=== PATIENT | female | born 1960 | race Caucasian/White ===

== ENCOUNTER 2020-04-23 08:26 | Observation (INO) ==
--- NOTE | 2020-04-05 12:24 | Anesthesiology Consultation ---
Date of Service April 05, 2020 Assessment & Plan (1) Encounter for pre-operative examination: Chart Review Chart Review: Acceptable Risk for Surgery and Patient NOT seen in Pre Admission Testing Consults Requested none History Surgery Operation Date: 04/23/20 09:20 Proposed Procedures p Left Partial Knee Replacement Versus - Acosta Bolton DO s Total Knee Arthroplasty - Acosta Bolton DO Height/Weight Height: 5 ft 4 in Weight: 75.296 kg Allergies Allergy/AdvReac Type Severity Reaction Status Date / Time Sulfa (Sulfonamide Allergy Intermediate Rash Verified 04/05/20 10:48 Antibiotics) Medications Home Medications Medication Instructions Recorded Confirmed Last Taken Breast Health 1 dose PO HS 02/21/20 04/05/20 Unknown Virgen Tarte 1 dose PO QAM 02/21/20 04/05/20 Unknown Lactobacillus acidophilus 10,000 mmu cells PO QAM 02/21/20 04/05/20 Unknown [Probiotic] amlodipine 5 mg PO PM 02/21/20 04/05/20 Unknown anastrozole 1 mg PO PM 02/21/20 04/05/20 Unknown ascorbic acid (vitamin C) [Vitamin 500 mg PO PM 02/21/20 04/05/20 Unknown C] aspirin [Aspir-81] 81 mg PO PM 02/21/20 04/05/20 Unknown calcium 500 mg PO HS 02/21/20 04/05/20 Unknown cholecalciferol (vitamin D3) 125 mcg PO PM 02/21/20 04/05/20 Unknown [Vitamin D3] cranberry 450 mg PO PM 02/21/20 04/05/20 Unknown escitalopram oxalate [Lexapro] 10 mg PO QAM 02/21/20 04/05/20 Unknown loratadine 10 mg PO PM 02/21/20 04/05/20 Unknown metoprolol succinate 25 mg PO PM 02/21/20 04/05/20 Unknown multivitamin 1 tab PO QAM 02/21/20 04/05/20 Unknown [id number]-[id number]-epa-fish oil [[place] 3] 1 cap PO PM 02/21/20 04/05/20 Unknown phytosterol-vit D3-fish oil 1 cap PO PM 02/21/20 04/05/20 Unknown [Cholesterol Relief] turmeric 400 mg PO HS 02/21/20 04/05/20 Unknown valsartan-hydrochlorothiazide 1 tab PO QAM 02/21/20 04/05/20 Unknown Wheeled Walker #1 ea 03/05/20 03/05/20 Unknown Past Medical History Medical History Anxiety Breast cancer 3 YRS AGO >RADIATION > LUMPECTOMY History of mitral valve disease MVP with severe MR s/p repair 2001. Mild residual MR per cardiology. Hyperlipidemia Hypertension Osteoarthritis Tricuspid regurgitation Moderate per cardiology. Past Surgical History Surgical History H/O lumpectomy LEFT History of bunionectomy of both great toes History of colonoscopy History of esophagogastroduodenoscopy (EGD) History of tooth extraction Hx of mitral valve repair 2001 [facility] [place] teeth extracted Social History Smoking Status: Never smoker Do You Dip or Chew Tobacco: No Hx Alcohol Use: Yes Alcohol type: beer alcohol intake frequency: a few times a month Hx Substance Use: No substance use type: does not use Testing Laboratory Results Laboratory Tests 03/05/20 03/05/20 03/05/20 11:15 11:15 11:15 WBC 12.41 H Hgb 13.6 Plt Count 260 PT 10.3 INR 1.0 APTT 26.0 Sodium 137 Potassium 4.0 Chloride 102 Carbon Dioxide 31 BUN 14 Creatinine 0.69 Glucose 90 Electrocardiogram Date: 03/05/20 Findings: + NSR @ (76 bpm) Chest X-Ray Date: 03/05/20 Findings: + NAD Echocardiogram Date: 01/31/20 Borderline LVH with normal size and low normal function of the LV. Paradoxical septal motion 2/2 prior open-heart surgery. Normal size and function of the RV. Atrial size is within normal limits. S/p repair of the myxomatous mitral valvular disease with the placement of #34 Meaghan ring with residual mild 1+ residual MR. Mean gradient across the repaired MV is 4 mmHg. Tricuspid valve leaflets are structurally normal. Mod to severe TR on the basis of dilation of tricuspid annulus. The peak PASP of 49 mmHg which is indicative of mild pulm HTN AV is trileaflet and calcified and no evidence of with mean creadient of 3 mmHg. Trace AR. Aortic root is within normal limits. Pulmonic valve appears to be grossly normal, mild pulmonary regurgitation. No intracardiac masses or thrombus. No intracardiac shunts. Pericardium is normal wihtout any significant pericardial effuion. Compared to previous echo from 09/17/18, no significant changes. Stress Test Date: 12/19/19 Submaximal persantine stress test is electrocardiographically negative for myocardial ischemia No cardiac symptoms Other Testing Carotid artery 01/31/20 Nonobstructive plaquing of the right/left common and external carotid Mild narrowing of the right/left internal carotid artery with an estimated obstruction of 1-39% There is antegrade flow in the left and right vertebral arteries
--- NOTE | 2020-04-19 08:11 | History & Physical Report ---
Date of Service April 19, 2020 Assessment & Plan (1) Osteoarthritis of left knee: We will proceed with a left unicompartmental knee arthroplasty. Postoperatively she will be kept overnight in the hospital for postoperative medical management. She plans to use [facility] home health in [place] upon discharge. History of Present Illness Chief Complaint: Osteoarthritis of the left knee. Primary Care Provider: NO PCP Kaela is a pleasant 59-year-old female who has been dealing with increasing left knee pain. Is been bothering her over the last 3 years. She denies any specific injuries. She has tried multiple injections including Euflexxa, steroids, and PRP. X-rays and clinical examination have shown medial compartmental arthritis of the left knee. After failing conservative treatment, she elected proceed with a left unicompartmental knee arthroplasty.. Allergies Allergy/AdvReac Type Severity Reaction Status Date / Time Sulfa (Sulfonamide Allergy Intermediate Rash Verified 04/05/20 10:48 Antibiotics) Home Medications Medication Instructions Recorded Confirmed Type Breast Health 1 dose PO HS 02/21/20 04/05/20 History Virgen Tarte 1 dose PO QAM 02/21/20 04/05/20 History Lactobacillus acidophilus 10,000 mmu cells PO QAM 02/21/20 04/05/20 History [Probiotic] amlodipine 5 mg PO PM 02/21/20 04/05/20 History anastrozole 1 mg PO PM 02/21/20 04/05/20 History ascorbic acid (vitamin C) [Vitamin 500 mg PO PM 02/21/20 04/05/20 History C] aspirin [Aspir-81] 81 mg PO PM 02/21/20 04/05/20 History calcium 500 mg PO HS 02/21/20 04/05/20 History cholecalciferol (vitamin D3) 125 mcg PO PM 02/21/20 04/05/20 History [Vitamin D3] cranberry 450 mg PO PM 02/21/20 04/05/20 History escitalopram oxalate [Lexapro] 10 mg PO QAM 02/21/20 04/05/20 History loratadine 10 mg PO PM 02/21/20 04/05/20 History metoprolol succinate 25 mg PO PM 02/21/20 04/05/20 History multivitamin 1 tab PO QAM 02/21/20 04/05/20 History ygimt-[id number]-epa-fish oil [[place] 3] 1 cap PO PM 12/15/20 01/28/21 History phytosterol-vit D3-fish oil 1 cap PO PM 02/21/20 04/05/20 History [Cholesterol Relief] turmeric 400 mg PO HS 02/21/20 04/05/20 History valsartan-hydrochlorothiazide 1 tab PO QAM 02/21/20 04/05/20 History Wheeled Walker #1 ea 03/05/20 03/05/20 Rx Past Med/Surg History Medical History Anxiety Breast cancer 3 YRS AGO >RADIATION > LUMPECTOMY History of mitral valve disease MVP with severe MR s/p repair 2001. Mild residual MR per cardiology. Hyperlipidemia Hypertension Osteoarthritis Tricuspid regurgitation Moderate per cardiology. Surgical History H/O lumpectomy LEFT History of bunionectomy of both great toes History of colonoscopy History of esophagogastroduodenoscopy (EGD) History of tooth extraction Hx of mitral valve repair 2001 [facility] [place] teeth extracted Social History Smoking Status: Never smoker Second Hand Exposure: No; Do You Dip or Chew Tobacco: No; Tobacco Cessation Education Requested by Patient: No Hx Alcohol Use: Yes Alcohol type: beer Hx Substance Use: No Preferred Language: Vietnamese Communication Ability: Effective Lawn Care Worker Required: No Beliefs That Will Affect Care: None Current Living Situation: Spouse Other Information That Helps Us Care for You: No Feels Safe at Home: Yes Safety Concerns: Feels Safe At This Time Assistive Devices: Denture - Upper and Glasses Assistive Devices Comment: partial to top Review of Systems All systems reviewed & are unremarkable except as noted in HPI & below. Physical Exam On physical examination of the left knee, she has good motion from 0 to 125 degrees. She has mild effusion. She has tenderness palpation of the distal medial femoral condyle and over the medial joint line.. Constitutional WD/WN, vitals as above Eyes PERRL, conjunctivae normal, anicteric sclerae ENMT external ear and nose normal, oropharynx normal Neck trachea midline, no thyromegaly Respiratory normal respiratory effort Cardiovascular RRR, no murmur, no edema Gastrointestinal (Abdomen) normal bowel sounds, soft, nontender, no hepatosplenomegaly Psychiatric A+Ox3, euthymic affect Results & Data Results & Data Laboratory Results . Diagnostic Findings X-rays of the left knee do show medial compartmental arthritis including joint space narrowing and osteophyte formation on the medial side.. PG Care Time/CCT Total # of Minutes Spent Total Time Spent with Patient: Total time spent is greater than 50% in coordination of care (as documented) at patient's floor/unit and/or counseling patient: Coding Level of Care Code None Diagnoses Osteoarthritis of left knee M17.12
--- NOTE | 2020-04-23 06:56 | History & Physical Bridge Note ---
Date of Service April 23, 2020 History & Physical Bridge Note I have examined the patient, reviewed the History & Physical and in the interval since the performance of the History & Physical I have noted the following changes of clinical significance: no changes noted
[~2020-04-23 08:26] MED LIST: ACETAMINOPHEN 500 MG TAB PO SCH; BUPIVACAINE 0.5 % 5 MG/1 ML PF 10ML VIAL ONE; EPINEPHrine INJ 1 MG/ML AMP ONE; FAMOTIDINE 20 MG TAB PO SCH; GABAPENTIN 600 MG DOSE PO SCH; LR 500ML BOLUS IV SCH; ROPIVACAINE 0.5% 5 MG/ML 30 ML VIAL ONE; ROPIVACAINE 0.5% HCL/PF 150 MG, BUPIVACAINE 0.75% MPF 20 ML, EPINEPHrine 30MG/30ML (OR ... INSTIL SCH; TRANEXAMIC ACID 1,000 MG **IV Intra-op IV SCH; TRANEXAMIC ACID 1,000 MG **IV Pre-op IV SCH; ceFAZolin 1000MG 1,000 MG/7.5 ML SYR IV SCH; dexAMETHasone 4 MG TAB PO SCH
[2020-04-23] MEDS: LR 60ML/HR IV SCH ×2 (09:17→09:35)
[2020-04-23] MEDS ORDERED: fentaNYL citrate 100 MCG/2 ML VIAL ONE (09:52)
[2020-04-23] MEDS ORDERED: MIDAZOLAM HCL 1 MG/ML 2ML VIAL ONE (09:52)
[2020-04-23] MEDS ORDERED: ATROPINE SULFATE 0.1 MG/ML 10ML SYR IV PRN (10:25)
[2020-04-23] MEDS ORDERED: fentaNYL citrate 100 MCG/2 ML VIAL IV PRN (10:25)
[2020-04-23] MEDS ORDERED: ePHEDrine sulfate 50 MG/ML AMP IV PRN (10:25)
[2020-04-23] MEDS ORDERED: ONDANSETRON INJ 2 MG/ML 2 ML VIAL IV PRN ×2 (10:25→13:19)
[2020-04-23] MEDS ORDERED: HYDROmorphone INJ 1 MG/ML SYRINGE IV PRN (10:25)
[2020-04-23] MEDS ORDERED: LIDOCAINE HCL 2% 2 ML VIAL/AMP(20MG/ML) INFIL ONE (10:56)
[2020-04-23] MEDS ORDERED: PROPOFOL IV EMULSION 10 MG/ML 20 ML VIAL IV ONE (10:56)
[2020-04-23] MEDS ORDERED: ORTHO JOINT ANESTHETIC ONE (11:05)
--- NOTE | 2020-04-23 12:34 | Operative Report ---
PG Post Operative Report Pre & Post Diagnosis Operation Date: 04/23/20 10:55 Pre-Op Diagnosis: Left Knee Osteoarthritis Post-Op Diagnosis: Left Knee Osteoarthritis I identified the patient and participated in the time-out.: Yes Procedure Operation Date: 04/23/20 10:55 Actual Procedures p Left Partial Knee Replacement(Left) - Acosta Bolton DO Surgeon Acosta Bolton DO Card Services Specialist Acosta Rosario PAC Estimated Blood Loss 10 Findings Consistent with Post-Op Diagnosis Specimens Left femoral and tibial bone Complications none Disposition Disposition: Recovery Room Indications Kaela is a pleasant 59-year-old female who is been dealing with chronic increa sing left knee pain. X-rays and clinical examination were diagnostic for advanced osteoarthritis of the left knee. After failing conservative treatment, she elected proceed with a left total knee arthroplasty. Description of Procedure Implants used: I used a [employer] [place] unicompartmental knee arthroplasty system with a size small femur, a tibia, and a size 8 mobile polyethylene bearing. All components were cemented in place with Palacos G cement. Kaela arrived [facility] for the above procedure. She was see n in the preoperative holding area and the operative extremity was identified and signed. She was given a preoperative antibiotic, TXA, a spinal anesthetic and an adductor nerve block. She was taken back to the operating room and laid on the table in the supine position. She was given basic sedation. The operative knee was then prepped and draped in sterile fashion. A timeout was done, and the patient and the operative extremity was properly identified. A midline incision was made from the superior pole of the patella down to the tibial tubercle. Dissection was taken down to the extensor mechanism and a subvastus arthrotomy was used. The medial retinaculum was released and a small portion of the fat pad was excised. The knee was then placed in a leg espinoza and the intra-articular portion of the knee was exposed. The medial meniscus was removed. The ACL was intact and the lateral compartment was inspected and there were no signs of any chondral damage. Several sizing spoons were used to measure the distal femur and it measured to be a size small.The tibial saw guide was then placed externally over the shaft of the tibia. A 4 mm G clamp was used to clamp the spoon with the external tibial saw guide. 2 pins were placed. A reciprocating saw was then used to resect the tibia just medial to the apex of the medial tibial spine. An oscillating saw was then used to resect the tibial plateau. The tibial bone was then removed. The tibia measured to be a size a. The trochlea was then exposed. A 4 mm drill was sent down the center of the femoral canal followed by a long intramedullary siomara. A line was then marked in the center of the distal medial femoral condyle. A femoral drill guide was then placed and the IM link was used to connect the intramedullary siomara to the femoral drill guide. A 4 mm drill was used in the upper pole of the drill guide and a 6 mm drill was used in the lower pole of the drill guide. The drill guide was then removed. A posterior resection guide was then placed in the posterior femur was resected. A 0 spigot was then impacted in the 6 mm drill hole. The distal femur was then milled and osteophytes were removed. Femoral and tibial t rials were then placed. A size 8 feeler gauge was used to measure the flexion gap in 100 of flexion. A size 6 feeler gauge was used to measure the extension gap in full extension. Trials were then removed and a size 2 spigot was then impacted in the 6 mm hole. The distal femur was once again milled. The anti- impingement guide was then impacted into place and an anterior mill was used to remove anterior bone and create clearance for the front of the bearing. The tibial template was then placed and the keel cut saw was used to resect for the keeled component. Trial components were then placed along with a size 8 mobile- bearing. The knee was brought through a full range of motion and felt to be stable. All trial components were then removed. Surrounding soft tissues were then injected with 50 cc of a pain control cocktail. Drill holes were placed in the distal femur to help with cement integration. The femoral and tibial components were then cemented in place with Palacos G cement. The size 8 mobile-bearing was then snapped into place. The knee was brought through a full range of motion and felt to be stable. The joint was then irrigated with normal saline solution. The tourniquet was deflated and hemostasis was obtained. The extensor mechanism was then closed with #1 Vicryl suture. Skin was closed with 2-0 Vicryl, 3-0V lock suture, and lizzy. A Silverlon and a compressive dressing were placed. She was then transferred to a hospital bed and taken to the postanesthesia care unit in stable condition. She tolerated the procedure well. Acosta Rosario PA-C, was present for the entire procedure. He was critical for patient positioning, prepping, draping, retraction exposure, wound closure and application of sterile dressing. I attest to the content of the Intraoperative Record and any orders documented therein. Any exceptions are noted below.
--- NOTE | 2020-04-23 13:10 | XRay Report ---
XR knee LT 1 or 2V routine CLINICAL HISTORY: Surgical Post Op COMPARISON STUDY: None. FINDINGS: 2 views of the left knee demonstrate a medial unicondylar prosthesis. The hardware appears intact. Skin lizzy are in place. No fracture or dislocation. IMPRESSION: Status post medial unicondylar knee prosthesis. No hardware complication. ACT 112: Negative or not required by law. Electronically signed by: Saurav Nash M.D. 04/23/2020 1:08 PM
[2020-04-23] MEDS ORDERED: SODIUM CHLORIDE 0.9% 1000ML 1,000 ML IV SCH (13:19)
[2020-04-23] MEDS ORDERED: MAGNESIUM HYDROXIDE SUSP 30 ML UDC PO PRN (13:19)
[2020-04-23] MEDS ORDERED: METOCLOPRAMIDE HCL INJ 5 MG/ML 2 ML VIAL IV PRN (13:19)
[2020-04-23] MEDS ORDERED: oxyCODONE HCL IR 5 MG TAB (IMMEDIATE RELEASE) PO PRN (13:19)
[2020-04-23] MEDS ORDERED: HYDROmorphone INJ 0.5 MG/0.5 ML SYR IV PRN (13:19)
[2020-04-23] MEDS ORDERED: NALOXONE HCL 0.4 MG/1 ML VIAL/CARP IV PRN (13:19)
[2020-04-23] MEDS ORDERED: bisacodyL 10 MG SUPP PR PRN (13:19)
--- NOTE | 2020-04-23 13:50 | Anesthesiology Progress Note ---
Date of Service April 23, 2020 Anesthesia Post Procedure Vital Signs Vital Signs: Temp Pulse Pulse Resp BP Pulse Ox 04/23/20 13:20 36.3 C L 81 16 148/81 H 91 04/23/20 13:04 36.4 C L 82 14 134/70 95 04/23/20 12:55 84 14 134/65 95 04/23/20 12:45 36.5 C 89 14 120/67 97 04/23/20 11:15 77 16 122/62 100 04/23/20 11:05 75 16 127/67 100 04/23/20 10:55 76 16 126/65 99 04/23/20 08:56 36.9 C 86 18 156/89 H 98 Pain Intensity Left Knee: Pain Intensity: 4 Transfer of Care Handoff Completed per policy Notes Mental Status: alert / awake / arousable and participated in evaluation Patient Amnestic to Procedure: Yes Nausea / Vomiting: adequately controlled Pain: adequately controlled Airway Patency, RR, SpO2: stable & adequate BP & HR: stable & adequate Hydration State: stable & adequate Neuraxial Anesthesia: was administered and sensory block is resolving Anesthetic Complications: no major complications apparent and Pt Satisfied with anesthetic care
--- NOTE | 2020-04-23 14:17 | Anesthesiology Progress Note ---
Date of Service April 23, 2020 Anesthesia Post Procedure Vital Signs Vital Signs: Temp Pulse Pulse Resp BP Pulse Ox 04/23/20 13:57 36.9 C 81 16 129/78 95 04/23/20 13:20 36.3 C L 81 16 148/81 H 91 04/23/20 13:04 36.4 C L 82 14 134/70 95 04/23/20 12:55 84 14 134/65 95 04/23/20 12:45 36.5 C 89 14 120/67 97 04/23/20 11:15 77 16 122/62 100 04/23/20 11:05 75 16 127/67 100 04/23/20 10:55 76 16 126/65 99 04/23/20 08:56 36.9 C 86 18 156/89 H 98 Pain Intensity Left Knee: Pain Intensity: 4 Transfer of Care Handoff Completed per policy Notes Mental Status: alert / awake / arousable and participated in evaluation Patient Amnestic to Procedure: Yes Nausea / Vomiting: adequately controlled Pain: adequately controlled Airway Patency, RR, SpO2: stable & adequate BP & HR: stable & adequate Hydration State: stable & adequate Neuraxial Anesthesia: was administered and sensory block is resolving Anesthetic Complications: no major complications apparent and Pt Satisfied with anesthetic care
[2020-04-23] MEDS: ACETAMINOPHEN 500 MG TAB PO SCH ×2 (14:26→20:26)
[2020-04-23] MEDS: KETOROLAC 30 MG/ML VIAL IV SCH ×2 (14:26→20:25)
[2020-04-23] MEDS: ceFAZolin 2000MG 2,000 MG/15 ML SYR IV SCH (18:54)
[2020-04-23] MEDS: ASPIRIN 81 MG ECTAB PO SCH (20:25)
[2020-04-23] MEDS: DOCUSATE SODIUM 100 MG CAP PO SCH (20:25)
[2020-04-23] MEDS ORDERED: SENNA 8.6 MG TAB PO SCH (21:00)
[2020-04-23] MEDS ORDERED: ANASTROZOLE 1 MG TAB PO SCH (21:00)
[2020-04-23] MEDS ORDERED: amLODIPine BESYLATE 5 MG TAB PO SCH (21:00)
[2020-04-23] MEDS ORDERED: LORATADINE 10 MG TAB PO SCH (21:00)
[2020-04-23] MEDS ORDERED: METOPROLOL SUCC 25MG EXT REL TAB PO SCH (21:00)
[2020-04-24] MEDS: KETOROLAC 30 MG/ML VIAL IV SCH ×2 (03:06→07:32)
[2020-04-24] MEDS: ceFAZolin 2000MG 2,000 MG/15 ML SYR IV SCH (03:06)
[2020-04-24] MEDS: ACETAMINOPHEN 500 MG TAB PO SCH ×2 (05:39→13:19)
[2020-04-24 05:59] LABS: Hemoglobin 11.8 g/dL (12.0-16.0); Mean Corpuscular Hemoglobin 30.3 pg (25-34); Mean Corpuscular Hgb Conc 34.7 g/dL (32-36); Mean Corpuscular Volume 87.4 fL (80-100); Mean Platelet Volume 10.7 fL (7.4-10.4); Platelet Count 229 K/uL (130-400); RDW Standard Deviation 41.7 fL (36.4-46.3); Red Blood Count 3.89 M/uL (4.2-5.4); White Blood Count 15.45 K/uL (4.8-10.8)
[2020-04-24 06:22] LABS: BUN Creatinine Ratio 23.3 (10-20); Calcium 8.6 mg/dl (8.5-10.1); Creatinine Clr Calc Pharmacy 82.6 ml/min; Est GFR (African American) 103.8; Est GFR (Non-African American) 89.5; Potassium 3.4 mmol/L (3.5-5.1)
--- NOTE | 2020-04-24 06:40 | Orthopedic Progress Note ---
Date of Service April 24, 2020 Assessment & Plan (1) Status post left partial knee replacement: Overall she is doing very well. She is not having too much pain in the left knee. She is on aspirin for DVT prophylaxis. She will be seen by physical therapy this morning for ambulation and range of motion exercises. She can be discharged home later today. She will follow-up with orthopedics in 2 weeks. Mayra Sherwood was seen and examined at bedside this morning. Overall she is doing very well. She is having too much pain in the left knee. She is been up and ambulating to the bathroom. She has no complaints.. Review of Systems All systems reviewed & are unremarkable except as noted in HPI & below. Physical Exam On physical examination of the left knee, the dressing is clean and dry. She has active dorsiflexion plantarflexion of her left ankle. Sensation is intact throughout.. Results & Data Results & Data Laboratory Results H & H 04/24/20 Range/Units 05:33 Hgb 11.8 L (12.0-16.0) g/dL Hct 34.0 L (37-47) % . Diagnostic Findings Postoperative x-rays of the left knee show the prosthesis to be in anatomic alignment without any evidence of fracture, dislocation, or loosening.. PG Care Time/CCT Total # of Minutes Spent Total Time Spent with Patient: Total time spent is greater than 50% in coordination of care (as documented) at patient's floor/unit and/or counseling patient: Coding Level of Care Code 58813 Post Operative Follow-Up Diagnoses Status post left partial knee replacement Z96.652
--- NOTE | 2020-04-24 06:41 | Discharge Summary ---
Date of Service April 24, 2020 Admission HPI (Per Admitting) Kaela is a pleasant 59-year-old female who has been dealing with increasing left knee pain. Is been bothering her over the last 3 years. She denies any specific injuries. She has tried multiple injections including Euflexxa, steroids, and PRP. X-rays and clinical examination have shown medial compartmental arthritis of the left knee. After failing conservative treatment, she elected proceed with a left unicompartmental knee arthroplasty.. Admission Exam (Per Admitting) On physical examination of the left knee, she has good motion from 0 to 125 degrees. She has mild effusion. She has tenderness palpation of the distal medial femoral condyle and over the medial joint line.. Principal Diagnosis Same as "Discharge Diagnosis" noted below under Discharge Instructions. Discharge Exam On physical examination of the left knee, the dressing is clean and dry. She has active dorsiflexion plantarflexion of her left ankle. Sensation is intact throughout.. Discharge Data Consultations 04/23/20 13:19 Consult Case Management - Discharge Planning Routine Procedures Performed Operation Date: 04/23/20 10:55 Actual Procedures p Left Partial Knee Replacement(Left) - Acosta Bolton DO Ordered Studies 04/23/20 15:05 US - OR guided needle placemen Routine Hospital Course (1) Status post left partial knee replacement: On April 23, 2020 Kaela arrived at [facility] and underwent a left partial knee replacement without complication. She had a spinal anesthetic. Postoperatively she was started on aspirin for DVT prophylaxis and transferred to the general orthopedic floors. Her hospital course was uneventful. On postop day #1 her H&H was stable and her pain was well controlled. She was able to participate well with physical therapy doing ambulation and range of motion exercises. She was then discharged home. She will follow-up with orthopedics in 2 weeks. PG Care Time/CCT Total # of Minutes Spent Total Time Spent with Patient: Total time spent is greater than 50% in coordination of care (as documented) at patient's floor/unit and/or counseling patient: Discharge Plan Discharge Items Patient Disposition: Home - Home Health Services Reason For Visit: Left Knee Osteoarthritis Discharge Diagnosis: Left partial knee replacement Activity: Resume your previous activity Non-emergency contact: Surgeon Call non-emergency contact if: your wound has increased redness and your wound has increased drainage Follow-up/Referrals: PCP,NO [Primary Care Provider] - Diet: Regular Addtl Attending Provider Instructions: Activity and Therapy Recommendations: * If you are using [facility] then therapy will be provided at your home until they feel you have accomplished all of your goals. * If you are using [facility] then Physical Therapy will be provided until they feel you are ready to start Outpatient Physical Therapy. * If you are not using home therapy then Outpatient Physical Therapy should start about 3-5 days from your day of surgery. Therapy will last about 6-10 weeks * It is important not to put a pillow under your knee when you are relaxing or sleeping. It is just as important to make sure you are getting your knee perfectly straight as it is to regain your knee bend. * You were shown a series of exercises in the hospital. Do these exercises three times each day including the exercises you were shown in physical therapy. * Get up and walk several times each day. For the first four weeks, try not to stand or walk for more than one hour at a time. If you do stand or walk for more than one hour, you will not hurt anything, but your leg will likely swell. * As you feel comfortable, you may change from the walker or crutches to a cane and then to independent walking. Medications: * Narcotic You will likely be sent home from the hospital with a prescription for the narcotic pain medication that worked best throughout your stay. * Aspirin Most patients will be required to take Aspirin 81mg twice a day for 6 weeks after surgery. This is obtained [id number] and a prescription is not necessary. * Other medications may be prescribed for specific circumstances. If you have any questions, please call the office at . * Resume previous home medications unless otherwise instructed TEDs/Elastic Stockings: The white elastic stockings help limit swelling and prevent blood clots from forming in your legs.~ The more you wear them, the more they work. Wear them for six weeks. Dressing Care: Leave the Silverlon dressing in place for 7 days. After 7 days you may remove the dressing. If the incision is not draining then you may leave the lizzy open to air. If there is a little bit of drainage or if the lizzy are getting stuck on your clothing then cover the incision with a dry dressing. The lizzy will be removed at your 2 week follow-up appointment. Showering: You may shower with the Silverlon dressing in place. Do not let the shower spray hit the dressing directly. Pat the Silverlon dressing dry. If the dressing becomes wet underneath, then simply remove the dressing. Keep the incision dry until you are 7 days out from the day of surgery. After 7 days you may remove the Silverlon dressing and shower with the lizzy exposed. Let soapy water run over the lizzy and pat them dry. Do not scrub or soak the incision. Things To Watch For: * Drainage from the incision site that occurs more than one week after your surgery. * Increased redness at the incision site. * Fever above 102 degrees Fahrenheit. * Unusual chest pain or shortness of breath. * Call [facility] at with any of the above proble ms Follow-Up Visit: Follow-up with Dr. Bolton's PA (Acosta Rosario) 2-3 weeks after your day of surgery. He will remove your lizzy and answer any questions. If you have any additional questions or concerns, Dr Bolton is usually in the office at the same time and will be available An appointment was probably scheduled when you signed-up for surgery in the office. If you have any questions call Office Instructions: More detailed instructions as well as Frequently Asked Questions were provided in a folder by our office when you signed-up for surgery. Please review these instructions when you get home. If you have any further questions or concerns, please feel free to call the office at [phone] Pending Studies at Discharge: No Stand-Alone Forms: My [facility] Medications and DC Order Prescriptions: New oxycodone 5 mg Tablet 5 mg PO Q4H PRN (Reason: pain) Qty: 30 RF: 0 Continued (DME) Wheeled Walker Misc See Rx Instructions .MEDSUPPLY Qty: 1 RF: 0 multivitamin Tablet 1 tab PO QAM RF: 0 anastrozole 1 mg Tablet 1 mg PO PM RF: 0 calcium 500 mg Tablet 500 mg PO HS RF: 0 amlodipine 5 mg Tablet 5 mg PO PM RF: 0 valsartan-hydrochlorothiazide 80-12.5 mg Tablet 1 tab PO QAM RF: 0 ascorbic acid (vitamin C) [Vitamin C] 500 mg Tablet 500 mg PO PM RF: 0 metoprolol succinate 25 mg Tablet Extended Release 24 Hr 25 mg PO PM RF: 0 loratadine 10 mg Tablet 10 mg PO PM RF: 0 escitalopram oxalate [Lexapro] 10 mg Tablet 10 mg PO QAM RF: 0 Cholesterol Relief 650-400 mg-unit Capsule 1 cap PO PM RF: 0 cholecalciferol (vitamin D3) [Vitamin D3] 125 mcg (5,000 unit) Tablet 125 mcg PO PM RF: 0 [place] 3 350-400 mg Capsule 1 cap PO PM RF: 0 cranberry 450 mg Tablet 450 mg PO PM RF: 0 Probiotic 10 billion cell Capsule 10,000 mmu cells PO QAM RF: 0 Breast Health 1 dose PO HS RF: 0 Virgen Tarte 1 dose PO QAM RF: 0 turmeric 400 mg Capsule 400 mg PO HS RF: 0 Changed aspirin 81 mg Tablet,Delayed Release (Dr/Ec) 81 mg PO BID 42 Days Qty: 0 RF: 0 Discharge Orders: Discharge Order (Routine); Ordered 04/24/20 Ordered By: Acosta Bolton Admission Data Admit Date/Time: 04/23/20 12:47 Attending Provider: Acosta Bolton Admit Provider: cAosta Bolton Primary Care Provider: [id number]
--- NOTE | 2020-04-24 07:24 | Anesthesiology Progress Note ---
Date of Service April 24, 2020 Anesthesia Post Procedure Vital Signs Vital Signs: Temp Pulse Pulse Resp BP Pulse Ox 04/24/20 03:04 36.5 C 83 16 151/73 H 93 04/23/20 22:37 36.6 C 86 16 120/69 94 04/23/20 20:00 36.8 C 89 16 124/71 94 04/23/20 16:14 36.8 C 85 17 132/80 97 04/23/20 15:24 36.2 C L 76 17 124/77 97 04/23/20 14:24 36.5 C 83 17 107/59 L 96 04/23/20 13:57 36.9 C 81 16 129/78 95 04/23/20 13:20 36.3 C L 81 16 148/81 H 91 04/23/20 13:04 36.4 C L 82 14 134/70 95 04/23/20 12:55 84 14 134/65 95 04/23/20 12:45 36.5 C 89 14 120/67 97 04/23/20 11:15 77 16 122/62 100 04/23/20 11:05 75 16 127/67 100 04/23/20 10:55 76 16 126/65 99 04/23/20 08:56 36.9 C 86 18 156/89 H 98 Notes Mental Status: alert / awake / arousable and participated in evaluation Patient Amnestic to Procedure: Yes Nausea / Vomiting: adequately controlled Pain: adequately controlled Airway Patency, RR, SpO2: stable & adequate BP & HR: stable & adequate Hydration State: stable & adequate Anesthetic Complications: no major complications apparent
[2020-04-24] MEDS ORDERED: dexAMETHasone 4 MG TAB PO SCH (08:00)
[2020-04-24] MEDS: DOCUSATE SODIUM 100 MG CAP PO SCH (08:17)
[2020-04-24] MEDS: ASPIRIN 81 MG ECTAB PO SCH (08:18)
[2020-04-24] MEDS ORDERED: ESCITALOPRAM OXALATE 10 MG TAB PO SCH (09:00)
[2020-04-24] MEDS ORDERED: MULTIVITAMIN TAB PO SCH (09:00)
[2020-04-24] MEDS ORDERED: VALSARTAN 80 MG TAB PO SCH (09:00)
[2020-04-24] MEDS ORDERED: hydroCHLOROthiazide 25 MG TAB PO SCH (09:00)
== END 2020-04-24 13:30 | disposition home health service (06) ==
LOC: ASU 08:26 → 3E 08:26

== ENCOUNTER 2021-05-17 05:03 | Observation (INO) ==
--- NOTE | 2021-04-18 10:18 | PAT Medication Instructions ---
Medication Instructions Date of Service April 18, 2021 Home Medications Medication Instructions Recorded Francine Becerril #1 ea 03/05/20 Breast Health 1 dose PO HS Virgen Tarte 1 dose PO QPM Lactobacillus acidophilus 10 billion cell capsule (Probiotic) 10,000 mmu cells PO QPM amlodipine 5 mg tablet 5 mg PO QAM anastrozole 1 mg tablet 1 mg PO QPM ascorbic acid (vitamin C) 500 mg tablet (Vitamin C) 500 mg PO PM calcium 500 mg tablet 500 mg PO HS cholecalciferol (vitamin D3) 125 mcg (5,000 unit) tablet (Vitamin D3) 125 mcg PO QPM escitalopram oxalate 10 mg tablet (Lexapro) 10 mg PO QAM loratadine 10 mg tablet 10 mg PO QPM metoprolol succinate 25 mg tablet,extended release 24 hr 25 mg PO QPM multivitamin 1 tab PO QAM [id number] [id number] oil 350 mg- 400 mg capsule 1 cap PO QPM aspirin 81 mg tablet,delayed release 81 mg PO QPM ernestine (Zingiber officinalis) 250 mg capsule 250 mg PO QPM levothyroxine 25 mcg tablet 25 mcg PO QAM] losartan 50 mg-hydrochlorothiazide 12.5 mg tablet 1 tab PO QAM Continue as directed anastrozole 1 mg tablet 1 mg PO QPM (unless surgeon directs otherwise) STOP taking 2 weeks before surgery Breast Health 1 dose PO HS Virgen Tarte 1 dose PO QPM [id number]-other [id number] oil 350 mg- 400 mg capsule 1 cap PO QPM ernestine (Zingiber officinalis) 250 mg capsule 250 mg PO QPM DO NOT take the morning of surgery multivitamin 1 tab PO QAM losartan 50 mg-hydrochlorothiazide 12.5 mg tablet 1 tab PO QAM Take morning of surgery With a small sip of water, OTHERWISE NOTHING TO EAT OR DRINK AFTER MIDNIGHT: amlodipine 5 mg tablet 5 mg PO QAM escitalopram oxalate 10 mg tablet (Lexapro) 10 mg PO QAM levothyroxine 25 mcg tablet 25 mcg PO QAM Take evening before surgery Lactobacillus acidophilus 10 billion cell capsule (Probiotic) 10,000 mmu cells PO QPM ascorbic acid (vitamin C) 500 mg tablet (Vitamin C) 500 mg PO PM calcium 500 mg tablet 500 mg PO HS cholecalciferol (vitamin D3) 125 mcg (5,000 unit) tablet (Vitamin D3) 125 mcg PO QPM loratadine 10 mg tablet 10 mg PO QPM metoprolol succinate 25 mg tablet,extended release 24 hr 25 mg PO QPM aspirin 81 mg tablet,delayed release 81 mg PO QPM (unless surgeon directs otherwise) Other Notes If you have any questions please call us at [phone] or [phone] or [phone] or [phone]
--- NOTE | 2021-04-24 12:44 | Anesthesiology Consultation ---
Date of Service April 24, 2021 Assessment & Plan (1) Encounter for pre-operative examination: Chart Review Chart Review: Acceptable Risk for Surgery (pending most recent cardio note and preop Covid testing results ) and Patient seen in Pre Admission Testing -Will attempt to get most recent cardio note (04/18/21) per patient Pt requests anti-nausea medication prior to surgery- had PONV with TKA under SAB Per PAT appt on 04/24/21, patient denies any recent travel or large group activities. No known Covid positive exposures or Covid related symptoms. No known Covid infection in the past 90 days. Pt is NOT vaccinated. Preop Covid testing scheduled 05/14/21= will await results. Educated on importance of self quarantining, social distancing and wearing mask in public for the patient one week prior to surgery and after Covid testing done Left TKA 04/23/20= Done under SAB at L3-4 with 1 attempt. Teaching & Discussion Pre-Anesthesia Teaching/Discussion Notes: Instructed NPO after midnight before surgery,except medications with 15 cc of water. Medication instructions provided according to the [facility] guidelines. History Surgery Operation Date: 05/17/21 08:25 Proposed Procedures p RIght Total Hip Arthroplasty Anterior - Acosta Bolton, Height/Weight Height: 5 ft 4 in Weight: 74.3 kg Allergies Allergy/AdvReac Type Severity Reaction Status Date / Time Sulfa (Sulfonamide Allergy Unknown Rash Verified 04/16/21 14:47 Antibiotics) Medications Home Medications Medication Instructions Recorded Confirmed Last Taken Breast Health 1 dose PO HS 02/21/20 04/16/21 04/09/20 Virgen Tarte 1 dose PO QPM 02/21/20 04/16/21 04/09/20 Lactobacillus acidophilus 10 10,000 mmu cells PO QPM 02/21/20 04/16/21 04/09/20 billion cell capsule (Probiotic) amlodipine 5 mg tablet 5 mg PO QAM 02/21/20 04/16/21 04/22/20 20:00 anastrozole 1 mg tablet 1 mg PO QPM 02/21/20 04/16/21 04/22/20 20:00 ascorbic acid (vitamin C) 500 mg 500 mg PO PM 02/21/20 04/16/21 04/09/20 tablet (Vitamin C) calcium 500 mg tablet 500 mg PO HS 02/21/20 04/16/21 04/09/20 cholecalciferol (vitamin D3) 125 125 mcg PO QPM 02/21/20 04/16/21 04/09/20 mcg (5,000 unit) tablet (Vitamin D3) escitalopram oxalate 10 mg tablet 10 mg PO QAM 02/21/20 04/16/21 04/23/20 06:45 (Lexapro) loratadine 10 mg tablet 10 mg PO QPM 02/21/20 04/16/21 04/22/20 20:00 metoprolol succinate 25 mg 25 mg PO QPM 02/21/20 04/16/21 04/22/20 20:00 tablet,extended release 24 hr multivitamin 1 tab PO QAM 02/21/20 04/16/21 04/09/20 ploea5-mgg-hxc-other npdse9r-cdmr 1 cap PO QPM 02/21/20 04/16/21 04/09/20 oil 350 mg- 400 mg capsule Wheeled Walker #1 ea 03/05/20 01/28/21 Unknown aspirin 81 mg tablet,delayed 81 mg PO QPM 04/16/21 04/16/21 Unknown release ernestine (Zingiber officinalis) 250 250 mg PO QPM 04/16/21 04/16/21 Unknown mg capsule levothyroxine 25 mcg tablet 25 mcg PO QAM 04/16/21 04/16/21 Unknown losartan 50 mg-hydrochlorothiazide 1 tab PO QAM 04/16/21 04/16/21 Unknown 12.5 mg tablet Past Medical History Medical History (Updated 04/24/21 @ 15:51 by ELIZABETH NavarroC) Anxiety Breast cancer 2018- Left side >RADIATION > LUMPECTOMY Does have left UE restriction Carotid artery disease <50% stenosis to bilateral ICAs per 03/05/21 carotid doppler History of mitral valve disease MVP with severe MR s/p repair 2001. Mild residual MR per 03/05/21 ECHO Hyperlipidemia Hypertension Hypothyroidism Nausea and vomiting after administration of anesthetic agent WITH L PARTIAL KNEE REPLACMENT [facility] 04/2020 - NAUSEATED - PT REQUESTS BE GIVEN SOMETHING ELSE Osteoarthritis Pulmonary hypertension Mild per cardio records PASP 46mmHg per 03/29/21 cardio note Tricuspid regurgitation Moderate to severe TR per 03/05/21 ECHO Cardio aware and monitoring Exercise / Class Metabolic Activity II 4-5 Yardwork/Stairs/Walk up hill (one flight of stairs - no chest pain or SOB ) Past Surgical History Surgical History H/O lumpectomy LEFT History of bunionectomy of both great toes History of colonoscopy History of esophagogastroduodenoscopy (EGD) History of tooth extraction Hx of mitral valve repair 2001 [facility] [place] Status post left partial knee replacement (~04/2020) HX [place] teeth extracted Past Anesthesia History No Hx of Anesthesia Complications (with exception to PONV ) and No Family Hx of Anesthesia Complications History of PONV No Hx of Motion Sickness and History of PONV (significant ) Social History Smoking Status: Never smoker Do You Dip or Chew Tobacco: No Hx Alcohol Use: No Alcohol type: beer alcohol intake frequency: a few times a month Hx Substance Use: No substance use type: does not use Review of Systems Patient denies chest pain, shortness of breath, dyspnea on exertion, reflux, cough, wheezing, palpitations. No hx of seizures, stroke, ID, apnea/snoring. No hx of blood clots or blood tra nsfusions Physical Exam Vital Signs VITALS BP 127/77 P 83 TEMP 98.0 SP02 96% RESP 16 Constitutional no acute distress ENMT Mouth: no TMJ clicking Thyromental Distance: < 3.5 Finger Breadths (3.0) Mallampati Class: III Top front right tooth capped Top partial plate Neck neck extension not limited Respiratory normal respiratory effort; no respiratory distress Auscultation: lungs clear to auscultation bilaterally; no wheezes Cardiovascular Rate/Rhythm: regular rate and regular rhythm Heart Sounds: no murmur Vessels: no carotid bruit Musculoskeletal Spine: no pain with cervical ROM Extremities: extremities normal to inspection Psychiatric Orientation: alert Lab Results Anesthesia Preop Results Results Anesthesia Widget: WBC 7.20 K/uL (4.8-10.8) 04/24/21 Hgb 12.7 g/dL (12.0-16.0) 04/24/21 Hct 37.7 % (37-47) 04/24/21 Plt 259 K/uL (130-400) 04/24/21 Na 139 mmol/L (136-145) 04/24/21 K 3.6 mmol/L (3.5-5.1) 04/24/21 Cl 102 mmol/L (98-107) 04/24/21 CO2 29 mmol/L (21-32) 04/24/21 BUN 13 mg/dl (6-23) 04/24/21 Creat 0.67 mg/dl (0.6-1.2) 04/24/21 Glucose Level 77 mg/dl (70-99(Fasting)) 04/24/21 PT 10.3 Seconds (9.0-12.0) 04/24/21 PTT 26.9 Seconds (21.0-31.0) 04/24/21 INR 1.0 (0.9-1.1) 04/24/21 Blood Type AB Positive 04/24/21 Antibody Screen NEGATIVE 04/24/21 Testing Electrocardiogram Date: 04/24/21 Findings: + NSR @ (82bpm) Normal EKG per cardio. Chest X-Ray Date: 04/24/21 Findings: + NAD and + cardiomegaly Echocardiogram Date: 03/05/21 EF: 53% LV Function: normal Paradoxical septal motion due to prior thoracotomy. Mildly dilated left atrium Repaired mitral valve with placement of a #34 Meaghan ring with residual mild 1+ mitral regurgitation. Moderate to severe TR on the basis of dilation of tricuspid annulus. Peak PASP 48 mmHg which is Indicative of mild to moderate pulmonary hypertension. Mild SD. Status post oversew of the left atrial appendage during the open heart surgery for mitral valve. Compared to previous echo from 01/31/2020, no significant changes. Stress Test Date: 12/19/19 Type: nuclear Normal myocardial perfusion scan. Quality study is good due to the absence of significant artifact. When compared with prior stress test performed September 10, 2017 there has been no new significant progressive change. No diagnostic evidence of reversible myocardial ischemia. Submaximal Persantine stress test is electrographically negative for myocardial ischemia. No cardiac symptoms. Other Testing Carotid artery evaluation 03/05/2021 = nonobstructive plaquing of the right common and external carotid. Mild narrowing of the right ICA with an estimated obstruction of less than 50%. Nonobstructive plaquing of the left common and external carotid. Mild narrowing of the left ICA with an estimated obstruction of less than 50%. Antegrade flow in both vertebral arteries. Compared to carotid ultrasound done 01/31/2020, overall little progressive change. 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
--- NOTE | 2021-05-16 11:45 | History & Physical Report ---
Date of Service May 16, 2021 Assessment & Plan (1) Osteoarthritis of right hip: We will proceed with a right anterior total hip arthroplasty. Postoperatively she will be started on aspirin for DVT prophylaxis and kept overnight in the hospital for postoperative medical management. She plans to use [facility] home health upon discharge. History of Present Illness Chief Complaint: Osteoarthritis of the right hip. Primary Care Provider: NO PCP Kaela is a pleasant 60-year-old female who is been doing with chronic worsening right hip and groin pain. X-rays and clinical examination have been diagnostic for advanced osteoarthritis of the right hip. After failing conservative treatment, she has elected to proceed with a right total hip arthroplasty.. Allergies Allergy/AdvReac Type Severity Reaction Status Date / Time Sulfa (Sulfonamide Allergy Unknown Rash Verified 04/16/21 14:47 Antibiotics) Home Medications Medication Instructions Recorded Confirmed Type Breast Health 1 dose PO HS 02/21/20 04/16/21 History Virgen Tarte 1 dose PO QPM 02/21/20 04/16/21 History Lactobacillus acidophilus 10 10,000 mmu cells PO QPM 02/21/20 04/16/21 History billion cell capsule (Probiotic) amlodipine 5 mg tablet 5 mg PO QAM 02/21/20 04/16/21 History anastrozole 1 mg tablet 1 mg PO QPM 02/21/20 04/16/21 History ascorbic acid (vitamin C) 500 mg 500 mg PO PM 02/21/20 04/16/21 History tablet (Vitamin C) calcium 500 mg tablet 500 mg PO HS 02/21/20 04/16/21 History cholecalciferol (vitamin D3) 125 125 mcg PO QPM 02/21/20 04/16/21 History mcg (5,000 unit) tablet (Vitamin D3) escitalopram oxalate 10 mg tablet 10 mg PO QAM 02/21/20 04/16/21 History (Lexapro) loratadine 10 mg tablet 10 mg PO QPM 02/21/20 04/16/21 History metoprolol succinate 25 mg 25 mg PO QPM 02/21/20 04/16/21 History tablet,extended release 24 hr multivitamin 1 tab PO QAM 02/21/20 04/16/21 History -vso-clo-other spbkh7d-ctmk 1 cap PO QPM 02/21/20 04/16/21 History oil 350 mg- 400 mg capsule Wheeled Walker #1 ea 03/05/20 01/28/21 Rx aspirin 81 mg tablet,delayed 81 mg PO QPM 04/16/21 04/16/21 History release ernestine (Zingiber officinalis) 250 250 mg PO QPM 04/16/21 04/16/21 History mg capsule levothyroxine 25 mcg tablet 25 mcg PO QAM 04/16/21 04/16/21 History losartan 50 mg-hydrochlorothiazide 1 tab PO QAM 04/16/21 04/16/21 History 12.5 mg tablet Past Med/Surg History Medical History Anxiety Breast cancer 2018- Left side >RADIATION > LUMPECTOMY Does have left UE restriction Carotid artery disease <50% stenosis to bilateral ICAs per 03/05/21 carotid doppler History of mitral valve disease MVP with severe MR s/p repair 2001. Mild residual MR per 03/05/21 ECHO Hyperlipidemia Hypertension Hypothyroidism Nausea and vomiting after administration of anesthetic agent WITH L PARTIAL KNEE REPLACMENT [facility] 04/2020 - NAUSEATED - PT REQUESTS BE GIVEN SOMETHING ELSE Osteoarthritis Pulmonary hypertension Mild per cardio records PASP 46mmHg per 03/29/21 cardio note Tricuspid regurgitation Moderate to severe TR per 03/05/21 ECHO Cardio aware and monitoring Surgical History H/O lumpectomy LEFT History of bunionectomy of both great toes History of colonoscopy History of esophagogastroduodenoscopy (EGD) History of tooth extraction Hx of mitral valve repair 2001 [facility] [place] Status post left partial knee replacement (~04/2020) HX [place] teeth extracted Social History Smoking Status: Never smoker Second Hand Exposure: No; Hx Alcohol Use: No Hx Substance Use: No Preferred Language: Hebrew Communication Ability: Effective Water Purifier Operator Required: No Beliefs That Will Affect Care: Voodoo Voodoo Beliefs: ORIENTAL ORTHODOX marital status: Current Living Situation: Spouse Feels Safe at Home: Yes Assistive Devices: Glasses Review of Systems All systems reviewed & are unremarkable except as noted in HPI & below. Physical Exam On physical examination of the right hip, she can flex about 90 degrees. She has significant pain with forced internal and external rotation. All of her pain is located in her groin. Constitutional WD/WN, vitals as above Eyes PERRL, conjunctivae normal, anicteric sclerae ENMT external ear and nose normal, oropharynx normal Neck trachea midline, no thyromegaly Respiratory normal respiratory effort Cardiovascular RRR, no murmur, no edema Gastrointestinal (Abdomen) normal bowel sounds, soft, nontender, no hepatosplenomegaly Psychiatric A+Ox3, euthymic affect Results & Data Results & Data Laboratory Results . Diagnostic Findings X-rays of the right hip and pelvis show advanced osteoarthritis with joint space narrowing, osteophyte formation, and jnox-kh-hcdy articulation. PG Care Time/CCT Total # of Minutes Spent Total Time Spent with Patient: Total time spent is greater than 50% in coordination of care (as documented) at patient's floor/unit and/or counseling patient: Coding Level of Care Code None Diagnoses Osteoarthritis of right hip M16.11
[2021-05-17] MEDS ORDERED: GABAPENTIN 300 MG CAP PO SCH (06:00)
[2021-05-17] MEDS ORDERED: ACETAMINOPHEN 500 MG TAB PO SCH (06:00)
[2021-05-17] MEDS ORDERED: FAMOTIDINE 20 MG TAB PO SCH (06:00)
[2021-05-17] MEDS ORDERED: LR 60ML/HR IV SCH (06:00)
[2021-05-17] MEDS ORDERED: dexAMETHasone 4 MG TAB PO SCH (06:00)
[2021-05-17] MEDS ORDERED: LR 500ML BOLUS, THEN 15ML/HR IV SCH (06:00)
[2021-05-17] MEDS ORDERED: ceFAZolin 1000MG 1,000 MG/7.5 ML SYR IV SCH (06:00)
[2021-05-17] MEDS ORDERED: TRANEXAMIC ACID 1,000 MG **IV Pre-op IV SCH (06:00)
[2021-05-17] MEDS ORDERED: Ketorolac (*for OR use only*) 30 MG, dexAMETHasone 4 MG, KETAMINE HCL (**OR use only) 1... INFIL SCH (06:00)
[2021-05-17] MEDS ORDERED: TRANEXAMIC ACID 1,000 MG **IV Intra-op IV SCH (06:00)
[2021-05-17] MEDS ORDERED: ORTHO JOINT ANESTHETIC ONE (06:27)
--- NOTE | 2021-05-17 06:27 | History & Physical Bridge Note ---
Date of Service May 17, 2021 History & Physical Bridge Note I have examined the patient, reviewed the History & Physical and in the interval since the performance of the History & Physical I have noted the following changes of clinical significance: no changes noted
[2021-05-17] MEDS ORDERED: MIDAZOLAM HCL 1 MG/ML 2ML VIAL ONE (06:32)
[2021-05-17] MEDS ORDERED: fentaNYL citrate 100 MCG/2 ML VIAL ONE (06:32)
[2021-05-17] MEDS ORDERED: BUPIVACAINE 0.5 % 5 MG/1 ML PF 10ML VIAL ONE (06:34)
[2021-05-17] MEDS ORDERED: fentaNYL citrate 100 MCG/2 ML VIAL IV PRN (06:52)
[2021-05-17] MEDS ORDERED: ePHEDrine sulfate 50 MG/ML AMP IV PRN (06:52)
[2021-05-17] MEDS ORDERED: ONDANSETRON INJ 2 MG/ML 2 ML VIAL IV PRN ×2 (06:52→10:19)
[2021-05-17] MEDS ORDERED: ATROPINE SULFATE 0.1 MG/ML 10ML SYR IV PRN (06:52)
--- NOTE | 2021-05-17 08:07 | Operative Report ---
PG Post Operative Report Pre & Post Diagnosis Operation Date: 05/17/21 07:00 Pre-Op Diagnosis: Right Hip Degnerative Joint Disease Post-Op Diagnosis: Right Hip Degnerative Joint Disease I identified the patient and participated in the time-out.: Yes Procedure Operation Date: 05/17/21 07:00 Actual Procedures p Right Anterior Total Hip Arthroplasty, Uncemented(Right) - Acosta Bolton DO Surgeon Acosta Bolton DO Community Services Coordinator Acosta Rosario PAC Estimated Blood Loss 250 Findings Consistent with Post-Op Diagnosis Specimens Right femoral head Complications none Disposition Disposition: Recovery Room Indications Kaela is a pleasant 60-year-old female who is been doing with chronic worsening right hip and groin pain. X-rays and clinical examination have been diagnostic for advanced osteoarthritis of the right hip. After failing conservative treatment, she elected proceed with a right anterior total hip arthroplasty. Description of Procedure Implants used I used a ZimmerBiomet total hip arthroplasty system with a size 1 standard offset Avenir Complete stem, a 48 mm G7 cup with a 25mm screw, an E1 polyethylene liner, a 32 mm ceramic head with a -3.5 neck. Kaela arrived at the hospital for the above procedure. She was seen in the preoperative holding area and the operative extremity was identified and signed. She was given a spinal anesthetic, a preoperative antibiotic, and TXA. She was then taken back to the operating room and laid on the table in the supine position. She was given basic sedation. The operative leg was secured to a Puristst leg positioner. The hip was then prepped and draped in sterile fashion. A timeout was done and the patient and the operative extremity was properly identified. An anterior approach was used. Dissection was taken down through the fascia and the tensor muscle belly was retracted laterally and the rectus was retracted medially. The circumflex vessels were identified and ligated. The capsule was then incised and tagged for later repair. The femoral neck was then cut and the femoral head was removed. The acetabulum was exposed. Time was spent doing a complete circumferential labral release. Sequential reaming of the acetabulum up to a size 47 reamer was done. Final reamings were done under fluoroscopy to ensure appropriate version. A Biomet 48mm G7 cup was then impacted into place. A single 25 mm screw was placed. The E1 polyethylene liner was then snapped into place. Surrounding soft tissues were then injected with 100 cc of an orthopedic pain control cocktail. The proximal femur was then exposed. Sequential broaching up to a size 1 broach was done. Off that broach a size 32 head with a -3.5 neck was trialed. The hip was reduced and fluoroscopic images showed anatomic alignment of the implants in acceptable length. The broach was removed. The final size 1 standard offset Avenir Complete stem was then impacted into place. A ceramic 32mm head with a - 3.5 neck was then impacted onto the stem and the hip was reduced. Final fluoroscopic images showed anatomic alignment of the hip. The capsule was then closed with #1 Vicryl suture. A dilute betadyne lavage was then done for 3 minutes. The joint was then irrigated with normal saline solution. The fascia was closed with #1 PDS suture. Skin was closed with 2-0 Vicryl, lizzy, and a Silverlon dressing. She was then transferred to a hospital bed and taken to the post anesthesia care unit in stable condition. She tolerated the procedure well. Acosta Rosario PA-C, was present for the entire procedure. He was critical for patient positioning, prepping, draping, retraction exposure, wound closure and application of sterile dressing. I attest to the content of the Intraoperative Record and any orders documented therein. Any exceptions are noted below.
[2021-05-17] MEDS ORDERED: LIDOCAINE 2% 2 ML VIAL/AMP(20MG/ML) INFIL ONE (08:09)
[2021-05-17] MEDS ORDERED: ONDANSETRON INJ 2 MG/ML 2 ML VIAL ONE (08:09)
[2021-05-17] MEDS ORDERED: PROPOFOL IV EMULSION 10 MG/ML 20 ML VIAL IV ONE (08:09)
--- NOTE | 2021-05-17 08:33 | Fluoroscopy Report ---
FL hip RT 1V CLINICAL HISTORY: Right anterior hip replacement. COMPARISON STUDY: None. FLUOROSCOPY TIME: 21 seconds. FINDINGS: 2 fluoroscopic spot images of the right hip demonstrate a right total arthroplasty. The deonte dware is intact. No fracture or dislocation. IMPRESSION: Fluoroscopic assistance provided for right total hip arthroplasty. ACT 112: Negative or not required by law. Electronically signed by: Saurav Nash M.D. 05/17/2021 8:32 AM
--- NOTE | 2021-05-17 08:58 | XRay Report ---
AP PELVIS, CROSSTABLE LATERAL RIGHT HIP History: Right total hip arthroplasty. Degenerative arthritis. Postop. FINDINGS: The patient is status post a right total hip arthroplasty. The hardware is intact. No fract ure or dislocation. Skin lizzy are in place. IMPRESSION: Right total hip arthroplasty. No evidence for hardware complication ACT 112: Negative or not required by law. Electronically signed by: Saurav Nash M.D. 05/17/2021 8:57 AM
--- NOTE | 2021-05-17 09:15 | Anesthesiology Progress Note ---
Date of Service May 17, 2021 Anesthesia Post Procedure Vital Signs Vital Signs: Temp Pulse Resp BP Pulse Ox 05/17/21 09:05 69 16 121/62 95 05/17/21 08:50 36.4 C L 71 16 109/58 L 96 05/17/21 08:45 71 16 108/54 L 96 05/17/21 08:35 70 16 111/57 L 100 05/17/21 08:28 36.2 C L 73 16 110/69 100 05/17/21 05:20 36.7 C 83 18 154/74 H 98 Pain Intensity Right Hip: Pain Intensity: 6 Transfer of Care Handoff Completed per policy Notes Mental Status: alert / awake / arousable Patient Amnestic to Procedure: Yes Nausea / Vomiting: adequately controlled Pain: adequately controlled Airway Patency, RR, SpO2: stable & adequate BP & HR: stable & adequate Hydration State: stable & adequate Neuraxial Anesthesia: was administered and sensory block is resolving Anesthetic Complications: no major complications apparent
[2021-05-17] MEDS ORDERED: METOCLOPRAMIDE HCL INJ 5 MG/ML 2 ML VIAL IV PRN (10:19)
[2021-05-17] MEDS ORDERED: HYDROmorphone INJ 0.5 MG/0.5 ML SYR IV PRN (10:19)
[2021-05-17] MEDS ORDERED: NALOXONE HCL 0.4 MG/1 ML VIAL/CARP IV PRN (10:19)
[2021-05-17] MEDS ORDERED: MAGNESIUM HYDROXIDE SUSP 30 ML UDC PO PRN (10:19)
[2021-05-17] MEDS ORDERED: oxyCODONE HCL IR 5 MG TAB (IMMEDIATE RELEASE) PO PRN (10:19)
[2021-05-17] MEDS ORDERED: bisacodyL 10 MG SUPP PR PRN (10:19)
[2021-05-17] MEDS: SODIUM CHLORIDE 0.9% 1000ML 1,000 ML IV SCH ×2 (10:55→20:48)
[2021-05-17] MEDS: ESCITALOPRAM OXALATE 10 MG TAB PO SCH (11:17)
[2021-05-17] MEDS: LEVOTHYROXINE SODIUM 25 MCG TABLET PO SCH (11:17)
[2021-05-17] MEDS: LOSARTAN/HCTZ 50/12.5MG TAB PO SCH (11:18)
[2021-05-17] MEDS: KETOROLAC 30 MG/ML VIAL IV SCH ×2 (11:18→17:07)
[2021-05-17] MEDS: DOCUSATE SODIUM 100 MG CAP PO SCH ×2 (11:20→20:50)
[2021-05-17] MEDS: MULTIVITAMIN TAB PO SCH (11:21)
[2021-05-17] MEDS: ASPIRIN 81 MG ECTAB PO SCH ×2 (11:27→20:50)
[2021-05-17] MEDS ORDERED: PHENYLEPHRINE HCL 10 MG/ML VIAL ONE (12:10)
[2021-05-17] MEDS ORDERED: PHENYLEPHRINE 100MCG/ML 5ML SYR ONE (12:10)
[2021-05-17] MEDS: ACETAMINOPHEN 500 MG TAB PO SCH ×2 (12:11→22:48)
[2021-05-17] MEDS: amLODIPine BESYLATE 5 MG TAB PO SCH (12:12)
[2021-05-17] MEDS: ceFAZolin 2000MG 2,000 MG/15 ML SYR IV SCH ×2 (14:51→22:49)
[2021-05-17] MEDS ORDERED: ANASTROZOLE 1 MG TAB PO SCH (21:00)
[2021-05-17] MEDS ORDERED: SENNA 8.6 MG TAB PO SCH (21:00)
[2021-05-17] MEDS ORDERED: LORATADINE 10 MG TAB PO SCH (21:00)
[2021-05-17] MEDS ORDERED: METOPROLOL SUCC 25MG EXT REL TAB PO SCH (21:00)
[2021-05-17] MEDS ORDERED: COUGH DROP (SUGAR FREE) LOZ 24 LOZ/1 BOX BUCCAL PRN (22:37)
[2021-05-18] MEDS: KETOROLAC 30 MG/ML VIAL IV SCH ×3 (00:28→11:53)
[2021-05-18] MEDS: ACETAMINOPHEN 500 MG TAB PO SCH (06:10)
[2021-05-18] MEDS: LEVOTHYROXINE SODIUM 25 MCG TABLET PO SCH (07:44)
[2021-05-18] MEDS ORDERED: dexAMETHasone 4 MG TAB PO SCH (08:00)
--- NOTE | 2021-05-18 08:33 | Orthopedic Progress Note ---
Date of Service May 18, 2021 Assessment & Plan (1) Status post right hip replacement: Overall she is doing very well. She denies any much pain in the right hip. She will be seen by physical therapy today for ambulation and range of motion exercises. She can be discharged home later today. She is on aspirin for DVT prophylaxis. She will follow with orthopedics in 2 weeks. Mayra Sherwood was seen and examined at bedside this morning. Overall she is doing very well. She denies any pain in her right hip. She has been up and ambulating to the bathroom. She has no complaints.. Review of Systems All systems reviewed & are unremarkable except as noted in HPI & below. Physical Exam On physical examination of the right hip, the dressing is clean and dry. Her leg lengths are equal. She has active dorsiflexion plantarflexion of her right ankle.. Results & Data Results & Data Laboratory Results . Diagnostic Findings Postoperative x-rays of the right hip show the prosthesis to be in anatomic alignment without any evidence of fracture, desiccation, or loosening PG Care Time/CCT Total # of Minutes Spent Total Time Spent with Patient: Total time spent is greater than 50% in coordination of care (as documented) at patient's floor/unit and/or counseling patient: Coding Level of Care Code 62345 Post Operative Follow-Up Diagnoses Status post right hip replacement Z96.641
--- NOTE | 2021-05-18 08:34 | Discharge Summary ---
Date of Service May 18, 2021 Admission HPI (Per Admitting) Kaela is a pleasant 60-year-old female who is been doing with chronic worsening right hip and groin pain. X-rays and clinical examination have been diagnostic for advanced osteoarthritis of the right hip. After failing conservative treatment, she has elected to proceed with a right total hip arthroplasty.. Admission Exam (Per Admitting) On physical examination of the right hip, she can flex about 90 degrees. She has significant pain with forced internal and external rotation. All of her pain is located in her groin. Principal Diagnosis Same as "Discharge Diagnosis" noted below under Discharge Instructions. Discharge Exam On physical examination of the right hip, the dressing is clean and dry. Her leg lengths are equal. She has active dorsiflexion plantarflexion of her right ankle.. Discharge Data Procedures Performed Operation Date: 05/17/21 07:00 Actual Procedures p Right Anterior Total Hip Arthroplasty, Uncemented(Right) - Acosta Bolton DO Ordered Studies 05/17/21 FL hip RT 1V Routine Hospital Course (1) Status post right hip replacement: On May 17, [address] [facility] and underwent a right hip replacement without complication. She had a spinal anesthetic. Postoperatively she was started on aspirin for DVT prophylaxis and transferred to the general with PICC floors. Her hospital course was uneventful. On postop day #1 her vital signs were stable and her pain was well controlled. She was able to participate well with physical therapy doing ambulation and range of motion exercises. She was then discharged home. She will follow-up with orthopedics in 2 weeks. PG Care Time/CCT Total # of Minutes Spent Total Time Spent with Patient: Total time spent is greater than 50% in coordination of care (as documented) at patient's floor/unit and/or counseling patient: Discharge Plan Discharge Items Patient Disposition: Home - Home Health Services Reason For Visit: Right Hip Degnerative Joint Disease Discharge Diagnosis: Right hip replacement Activity: Per Instructions section Non-emergency contact: Surgeon Call non-emergency contact if: your wound has increased redness and your wound has increased drainage Follow-up/Referrals: PCP,NO [Physician] - Diet: Regular Addtl Attending Provider Instructions: Activity and Therapy Recommendations: * If you are using [facility] then therapy will be provided at your home until they feel you have accomplished all of your goals. * If you are using [facility] then Physical Therapy will be provided until they feel you are ready to start Outpatient Physical Therapy. * If you are not using home therapy then Outpatient Physical Therapy should start about 3-5 days from your day of surgery. Therapy will last about 6-10 weeks * You were shown a series of exercises in the hospital. Do these exercises three times each day including the exercises you were shown in physical therapy. * Get up and walk several times each day.~ For the first four weeks, try not to stand or walk for more than one hour at a time. If you do stand or walk for more than one hour, you will not hurt anything, but your leg will likely swell.~~ * As you feel comfortable, you may change from the walker or crutches to a cane and~then to independent walking. Medications: * Narcotic You will likely be sent home from the hospital with a prescription for the narcotic pain medication that worked best throughout your stay. * Aspirin Most patients will be required to take Aspirin 81mg twice a day for 6 weeks after surgery. This is obtained amni-qqs-sscxchr and a prescription is not necessary. * Other medications may be prescribed for specific circumstances. If you have any questions, please call the office at . * Resume previous home medications unless otherwise instructed TEDs/Elastic Stockings: The white elastic stockings help limit swelling and prevent blood clots from forming in your legs. The more you wear them, the more they work. Wear them for six weeks. Dressing Care: Leave the Silverlon dressing in place for 7 days. After 7 days you may remove the dressing. If the incision is not draining then you may leave the lizzy open to air. If there is a little bit of drainage or if the lizzy are getting stuck on your clothing then cover the incision with a dry dressing. The lizzy will be removed at your 2 week follow-up appointment. Showering: You may shower with the Silverlon dressing in place. Do not let the shower spray hit the dressing directly. Pat the Silverlon dressing dry. If the dressing becomes wet underneath, then simply remove the dressing. Keep the incision dry until you are 7 days out from the day of surgery. After 7 days you may remove the Silverlon dressing and shower with the lizzy exposed. Let soapy water run over the lizzy and pat them dry. Do not scrub or soak the incision. Things To Watch For: * Drainage from the incision site that occurs more than one week after your surgery. * Increased redness at the incision site. * Fever above 102 degrees Fahrenheit. * Unusual chest pain or shortness of breath. * Call [facility] at with any of the above problems Follow-Up Visit: Follow-up with Dr. Bolton's PA (Acosta Rosario) 2-3 weeks after your day of surgery. He will remove your lizzy and answer any questions. If you have any additional questions or concerns, Dr Bolton is usually in the office at the same time and will be available An appointment was probably scheduled when you signed-up for surgery in the office. If you have any questions call Office Instructions: More detailed instructions as well as Frequently Asked Questions were provided in a folder by our office when you signed-up for surgery. Please review these instructions when you get home. If you have any further questions or concerns, please feel free to call the office at [phone] Pending Studies at Discharge: No Stand-Alone Forms: My [facility], Smoking Cessation Medications and DC Order Prescriptions: New oxycodone-acetaminophen 5-325 mg tablet 1 tab PO Q6H PRN (Reason: pain) Qty: 30 RF: 0 Continued (DME) Wheeled Walker Misc See Rx Instructions .MEDSUPPLY Qty: 1 RF: 0 multivitamin Tablet 1 tab PO QAM RF: 0 anastrozole 1 mg Tablet 1 mg PO QPM RF: 0 calcium 500 mg Tablet 500 mg PO HS RF: 0 amlodipine 5 mg Tablet 5 mg PO QAM RF: 0 ascorbic acid (vitamin C) [Vitamin C] 500 mg Tablet 500 mg PO PM RF: 0 metoprolol succinate 25 mg Tablet Extended Release 24 Hr 25 mg PO QPM RF: 0 loratadine 10 mg Tablet 10 mg PO QPM RF: 0 escitalopram oxalate [Lexapro] 10 mg Tablet 10 mg PO QAM RF: 0 cholecalciferol (vitamin D3) [Vitamin D3] 125 mcg (5,000 unit) Tablet 125 mcg PO QPM RF: 0 eetdj-2y-xvp-epa-fish oil 350-400 mg Capsule 1 cap PO QPM RF: 0 Probiotic 10 billion cell Capsule 10,000 mmu cells PO QPM RF: 0 Breast Health 1 dose PO HS RF: 0 Virgen Tarte 1 dose PO QPM RF: 0 levothyroxine 25 mcg Tablet 25 mcg PO QAM RF: 0 losartan-hydrochlorothiazide 50-12.5 mg Tablet 1 tab PO QAM RF: 0 ernestine (Zingiber officinalis) 250 mg Capsule 250 mg PO QPM RF: 0 aspirin 81 mg tablet,delayed release (DR/EC) 81 mg PO BID 42 Days Qty: 0 RF: 0 Discharge Orders: Discharge Order (Routine); Ordered 05/18/21 Ordered By: Acosta Bolton Admission Data Admit Date/Time: 05/17/21 08:30 Attending Provider: Acosta Bolton Admit Provider: Acosta Bolton Other Providers: [facility],Home Healthcare
[2021-05-18] MEDS: DOCUSATE SODIUM 100 MG CAP PO SCH (08:46)
[2021-05-18] MEDS: ASPIRIN 81 MG ECTAB PO SCH (08:46)
[2021-05-18] MEDS: LOSARTAN/HCTZ 50/12.5MG TAB PO SCH (08:46)
[2021-05-18] MEDS: amLODIPine BESYLATE 5 MG TAB PO SCH (08:46)
[2021-05-18] MEDS: MULTIVITAMIN TAB PO SCH (08:46)
[2021-05-18] MEDS: ESCITALOPRAM OXALATE 10 MG TAB PO SCH (08:47)
== END 2021-05-18 12:21 | disposition home health service (06) ==
LOC: PACUINP 05:03 → ASU 05:03 → 3E 10:17

== ENCOUNTER 2023-04-27 05:00 | Observation (INO) ==
--- NOTE | 2023-03-27 12:41 | PAT Medication Instructions ---
Medication Instructions Date of Service March 27, 2023 Home Medications Medication Instructions Recorded Francine Becerril #1 ea 03/05/20 Virgen Tarte 1 dose PO QPM Lactobacillus acidophilus 10 billion cell capsule (Probiotic) 10,000 mmu cells PO DAILY anastrozole 1 mg tablet 1 mg PO QPM ascorbic acid (vitamin C) 500 mg tablet (Vitamin C) 500 mg PO PM escitalopram oxalate 10 mg tablet (Lexapro) 10 mg PO QAM loratadine 10 mg tablet 10 mg PO QPM multivitamin 1 tab PO QAM ywpkh5-vmp-lta-other vvlsi2q-pdyi oil 350 mg- 400 mg capsule 1 cap PO QPM levothyroxine 25 mcg tablet 25 mcg PO QAM Coq10 With Vitamin D3 1 tab PO QAM apixaban 5 mg tablet (Eliquis) 10 mg PO BID calcium 500 mg tablet 500 mg PO DAILY furosemide 20 mg tablet (Lasix) 20 mg PO Q2D losartan 100 mg-hydrochlorothiazide 25 mg tablet 1 tab PO QAM metoprolol succinate 50 mg tablet,extended release 24 hr 50 mg PO HS zinc 25 mg tablet 25 mg PO DAILY ASK your prescriber and surgeon apixaban 5 mg tablet (Eliquis) 10 mg PO BID(in order for spinal or epidural anesthesia, Eliquis needs to be stopped 72 hours/3 days before surgery. Please check if okay with doctor that prescribes this to you) STOP taking 2 weeks before surgery (or as soon as possible if surgery is within 2 weeks) Virgen Tarte 1 dose PO QPM Coq10 With Vitamin D3 1 tab PO QAM kbtod8-ocs-dvl-other lfrwr5n-zekg oil 350 mg- 400 mg capsule 1 cap PO QPM DO NOT take the morning of surgery Lactobacillus acidophilus 10 billion cell capsule (Probiotic) 10,000 mmu cells PO DAILY multivitamin 1 tab PO QAM calcium 500 mg tablet 500 mg PO DAILY furosemide 20 mg tablet (Lasix) 20 mg PO Q2D losartan 100 mg-hydrochlorothiazide 25 mg tablet 1 tab PO QAM zinc 25 mg tablet 25 mg PO DAILY Take morning of surgery With a small sip of water, OTHERWISE NOTHING TO EAT OR DRINK AFTER MIDNIGHT: escitalopram oxalate 10 mg tablet (Lexapro) 10 mg PO QAM levothyroxine 25 mcg tablet 25 mcg PO QAM Take evening before surgery ascorbic acid (vitamin C) 500 mg tablet (Vitamin C) 500 mg PO PM loratadine 10 mg tablet 10 mg PO QPM metoprolol succinate 50 mg tablet,extended release 24 hr 50 mg PO HS Other Notes If you have any questions please call us at [phone] or [phone] or [phone] or [phone]
--- NOTE | 2023-04-01 12:47 | Anesthesiology Consultation ---
Date of Service April 01, 2023 Assessment & Plan (1) Encounter for pre-operative examination: - cardiology clearance 04/02/23: "...intermediate risk perioperative for planned procedure..." Case discussed again with Dr. Tran who advised patient is acceptable to proceed with scheduled surgery at [facility] at current status without additional evaluation/notation from cardiology. - cardiology office visit 03/23/23: "...hypertension, paroxysmal atrial fibrillation and history of mitral valve repair 2001...feeling well and is scheduled to have left hip surgery 04/27/23...continue current medical therapy...follow up in 6 months...repeat echo prior to hip surgery given history of mitral valve repair..." Subsequent echocardiogram completed, awaiting cardiology final clearance. - severe pulmonary hypertension noted on 03/25/23 echo. Case discussed in detail with Dr. Tran who advised awaiting cardiology final clearance and comment on echocardiogram for further determination on if patient is acceptable to proceed at [facility]. - left arm restriction. - Outpatient joint assessment: Patient is currently scheduled for inpatient pathway. If re-evaluated and patient/surgeon requests outpatient pathway, patient is not recommended candidate for outpatient joint program from anesthesia standpoint. Chart Review Chart Review: Acceptable Risk for Surgery and Patient seen in Pre Admission Testing Teaching & Discussion Pre-Anesthesia Teaching/Discussion Notes: Instructed NPO after midnight before surgery, except medications with 15 cc of water. Medication instructions provided according to the PAT guidelines. History Surgery Operation Date: 04/27/23 10:20 Proposed Procedures p Left Anterior Total Hip Arthroplasty - Acosta Bolton, Height/Weight Height: 5 ft 4 in Weight: 76.2 kg Allergies Allergy/AdvReac Type Severity Reaction Status Date / Time Sulfa (Sulfonamide Allergy Mild Rash Verified 03/18/23 12:39 Antibiotics) Medications Home Medications Medication Instructions Recorded Confirmed Last Taken Virgen Tarte 1 dose PO QPM 02/21/20 03/18/23 05/03/21 20:00 Lactobacillus acidophilus 10 10,000 mmu cells PO DAILY 02/21/20 03/18/23 05/15/21 20:00 billion cell capsule (Probiotic) anastrozole 1 mg tablet 1 mg PO QPM 02/21/20 03/18/23 05/16/21 20:00 ascorbic acid (vitamin C) 500 mg 500 mg PO PM 02/21/20 03/18/2305/15/22 20:00 tablet (Vitamin C) escitalopram oxalate 10 mg tablet 10 mg PO QAM 02/21/20 03/18/23 05/17/21 03:00 (Lexapro) loratadine 10 mg tablet 10 mg PO QPM 02/21/20 03/18/23 05/16/21 20:00 multivitamin 1 tab PO QAM 02/21/20 03/18/23 05/15/21 20:00 [id number] 1 cap PO QPM 02/21/20 03/18/23 05/03/21 20:00 oil 350 mg- 400 mg capsule Wheeled Walker #1 ea 03/05/20 01/28/21 Unknown levothyroxine 25 mcg tablet 25 mcg PO QAM 04/16/21 03/18/23 05/17/21 03:00 Coq10 With Vitamin D3 1 tab PO QAM 03/18/23 03/18/23 Unknown apixaban 5 mg tablet (Eliquis) 5 mg PO BID 03/18/23 04/01/23 Unknown calcium 500 mg tablet 500 mg PO DAILY 03/18/23 03/18/23 Unknown furosemide 20 mg tablet (Lasix) 20 mg PO Q2D 03/18/23 03/18/23 Unknown losartan 100 1 tab PO QAM 03/18/23 03/18/23 Unknown mg-hydrochlorothiazide 25 mg tablet metoprolol succinate 50 mg 50 mg PO HS 03/18/23 03/18/23 Unknown tablet,extended release 24 hr zinc 25 mg tablet 25 mg PO DAILY 03/18/23 03/18/23 Unknown Past Medical History Medical History (Updated 04/01/23 @ 16:24 by Bhavana Flynn PA-C) Anxiety Atrial fibrillation followed by Dr. Mercado>cards from [facility] 04/2022 Carotid artery disease mild per carotid report History of mitral valve disease MVP with severe MR s/p repair 2001. HX: breast cancer 2018- Left side >RADIATION > LUMPECTOMY Does have left UE restriction Hyperlipidemia Hypertension controlled, stable per pt Hypothyroidism Pulmonary hypertension severe-PASP 61 mmHG on 03/2023 echo Tricuspid regurgitation Moderate to severe TR per 03/05/21 ECHO Cardio aware and monitoring Patient denies h/o stroke, seizures, heart attack, heart failure, DM, blood clots/DVTs or blood transfusions. Exercise / Class Metabolic Activity II 4-5 Yardwork/Stairs/Walk up hill (denies chest discomfort or shortness of breath with 1 FOS) Past Family History Family History Other No family history of adverse response to anesthesia Past Surgical History Surgical History (Updated 04/01/23 @ 12:43 by Bhavana Flynn PA-C) H/O lumpectomy left History of bunionectomy of both great toes History of colonoscopy History of esophagogastroduodenoscopy (EGD) History of hip surgery right anterior darlene History of tooth extraction Hx of mitral valve repair 2001 [facility] Nausea and vomiting after administration of anesthetic agent denies needing scop patch with partial knee replacement; did well with hip replacement Status post left partial knee replacement (~04/2020) [place] teeth extracted Past Anesthesia History No Hx of Anesthesia Complications and No Family Hx of Anesthesia Complications History of PONV No Hx of Motion Sickness and History of PONV (denies needing scop patch) Social History Smoking Status: Never smoker Do You Dip or Chew Tobacco: No Hx Alcohol Use: Yes Alcohol type: beer alcohol intake frequency: a few times a month Hx Substance Use: No substance use type: does not use Review of Systems Patient denies chest pain, shortness of breath, dyspnea on exertion, snoring, witnessed apneas, reflux, fever, chills, cough, wheezing, or palpitations. Physical Exam Vital Signs Vitals BP 123/80 P 77 TEMP 98.5 SP02 96% on RA RESP 18 Physical Patient resting comfortably in chair in no acute distress, alert and oriented, responding appropriately throughout visit Full cervical extension range of motion without pain TMD 3.5 finger breadths Mallampati Score 2 Dentition: several caps/crowns and removable partial, denies chipped or loose teeth, implants or bridges Lungs: normal respiratory effort. Good air movement, clear throughout to auscultation, no adventitious breath sounds Cardiac: regular rate and rhythm, no murmurs noted Carotid arteries: negative bruit bilat Lab Results Anesthesia Preop Results Results Anesthesia Widget: WBC 7.36 K/ul (4.8-10.8) 04/01/23 Hgb 13.1 g/dl (12.0-16.0) 04/01/23 Hct 37.7 % (37.0-47.0) 04/01/23 Plt 228 K/uL (130-400) 04/01/23 Na 136 mmol/L (136-145) 04/01/23 K 3.9 mmol/L (3.5-5.1) 04/01/23 Cl 102 mmol/L (98-107) 04/01/23 CO2 27 mmol/L (21-32) 04/01/23 BUN 18 mg/dl (6-23) 04/01/23 Creat 0.65 mg/dl (0.6-1.2) 04/01/23 Glucose Level 86 mg/dl (70-99(Fasting)) 04/01/23 PT 11.1 Seconds (9.0-12.0) 04/01/23 PTT 31 Seconds (21-31) 04/01/23 INR 1.0 (0.9-1.1) 04/01/23 Blood Type AB Positive 04/01/23 Antibody Screen NEGATIVE 04/01/23 Testing Electrocardiogram Date: 04/01/23 NSR, rate [address] abnormality Cardiology office not able to fax EKG at time of PAT visit, patient was agreeable to repeating EKG Chest X-Ray Date: 04/01/23 Cardiac silhouette is enlarged. Median sternotomy. Suggestion of a prosthetic mitral valve. No pneumothorax, pleural effusion or airspace consolidation. Mild chronic interstitial coarsening. Mild right hemidiaphragmatic elevation. Bones appear grossly intact. IMPRESSION: Cardiomegaly without acute process. Echocardiogram Date: 03/25/23 EF 60% Mild LA enlargement Mild tricuspid regurgitation PASP 61 mmHg-severe pulmonary hypertension Stress Test Date: 03/04/22 Pharmacologic MPHR 67% No diagnostic evidence of stress induced reversible myocardial ischemia EF 65% Normal LV wall motion Other Testing Carotid doppler 03/05/21 < 50% stenosis ICAs bilat
[2023-04-27] MEDS: ACETAMINOPHEN 500 MG TAB PO SCH ×2 (05:43→14:04)
[2023-04-27] MEDS: LR 500ML BOLUS, THEN 15ML/HR IV SCH (05:43)
[2023-04-27] MEDS: GABAPENTIN 600 MG DOSE PO SCH (05:43)
[2023-04-27] MEDS: LR 60ML/HR IV SCH (05:43)
[2023-04-27] MEDS: FAMOTIDINE 20 MG TAB PO SCH (05:44)
[2023-04-27] MEDS: dexAMETHasone**PF** 10 MG/ML VIAL IV SCH (05:44)
[2023-04-27] MEDS ORDERED: BUPIVACAINE 0.5 % 5 MG/1 ML PF 10ML VIAL ONE (06:16)
[2023-04-27] MEDS ORDERED: fentaNYL citrate PF 100 MCG/2 ML VIAL ONE (06:29)
[2023-04-27] MEDS ORDERED: PROPOFOL IV EMULSION 10 MG/ML 20 ML VIAL IV ONE (06:29)
[2023-04-27] MEDS ORDERED: MIDAZOLAM HCL 1 MG/ML 2ML VIAL ONE (06:29)
[2023-04-27] MEDS ORDERED: LIDOCAINE 2% 2 ML VIAL/AMP(20MG/ML) INFIL ONE (06:29)
[2023-04-27] MEDS: TRANEXAMIC ACID 1,000 MG **IV Pre-op IV SCH (06:42)
[2023-04-27] MEDS ORDERED: ePHEDrine sulfate 50 MG/ML AMP IV PRN (06:53)
[2023-04-27] MEDS ORDERED: ATROPINE SULFATE 0.1 MG/ML 10ML SYR IV PRN (06:53)
[2023-04-27] MEDS ORDERED: DROPERIDOL 5 MG/2 ML VIAL IV PRN (06:53)
[2023-04-27] MEDS ORDERED: fentaNYL citrate PF 100 MCG/2 ML VIAL IV PRN (06:53)
--- NOTE | 2023-04-27 06:55 | History & Physical Bridge Note ---
Date of Service April 27, 2023 History & Physical Bridge Note I have examined the patient, reviewed the History & Physical and in the interval since the performance of the History & Physical I have noted the following changes of clinical significance: no changes noted
[2023-04-27] MEDS: ceFAZolin 2000MG 2,000 MG/15 ML SYR IV SCH ×2 (06:59→14:05)
[2023-04-27] MEDS: ORTHO JOINT ANESTHETIC ONE (07:43)
[2023-04-27] MEDS: ROPIV 0.5% 246mg, Ketorolac 30mg, EPINEPHrine 0.5mg in NSS INFIL SCH (07:44)
[2023-04-27] MEDS: TRANEXAMIC ACID 1,000 MG **IV Intra-op IV SCH (07:54)
--- NOTE | 2023-04-27 08:01 | Operative Report ---
PG Post Operative Report Pre & Post Diagnosis Operation Date: 04/27/23 07:00 Pre-Op Diagnosis: DJD Left Hip Post-Op Diagnosis: DJD Left Hip I identified the patient and participated in the time-out.: Yes Procedure Operation Date: 04/27/23 07:00 Actual Procedures p Left Anterior Total Hip Arthroplasty(Left) - Acosta Bolton DO Surgeon Acosta Bolton DO Phys Asst Acosta Rosario PA-C Estimated Blood Loss 250 Findings Consistent with Post-Op Diagnosis Specimens Left femoral head Description of Procedure Implants used I used a ZimmerBiomet total hip arthroplasty system with a size 1 standard offset Avenir Complete stem, a 48 mm G7 cup with a 25mm screw, an E1 polyethylene liner, a 32 mm ceramic head with a 0 neck. Kaela arrived at the hospital for the above procedure. She was seen in the preoperative holding area and the operative extremity was identified and signed. She was given a spinal anesthetic, a preoperative antibiotic, and TXA. She was then taken back to the operating room and laid on the table in the supine position. She was given basic sedation. The operative leg was secured to a Puristst leg positioner. The hip was then prepped and draped in sterile fashion. A timeout was done and the patient and the operative extremity was properly identified. An anterior approach was used. Dissection was taken down through the fascia and the tensor muscle belly was retracted laterally and the rectus was retracted medially. The circumflex vessels were identified and ligated. The capsule was then incised and tagged for later repair. The femoral neck was then cut and the femoral head was removed. The acetabulum was exposed. Time was spent doing a complete circumferential labral release. Sequential reaming of the acetabulum up to a size 47 reamer was done. Final reamings were done under fluoroscopy to ensure appropriate version. A Biomet 48 mm G7 cup was then impacted into place. A single 25 mm screw was placed. The E1 polyethylene liner was then snapped into place. Surrounding soft tissues were then injected with 100 cc of an orthopedic pain control cocktail. The proximal femur was then exposed. Sequential broaching up to a size 1 broach was done. Off that broach a size 32 head with a 0 neck was trialed. The hip was reduced and fluoroscopic images showed anatomic alignment of the implants in acceptable length. The broach was removed. The final size 1 standard offset Avenir Complete stem was then impacted into place. A ceramic 32 mm head with a 0 neck was then impacted onto the stem and the hip was reduced. Final fluoroscopic images showed anatomic alignment of the hip. The capsule was then closed with #1 Vicryl suture. A dilute betadyne lavage was then done for 3 minutes. The joint was then irrigated with normal saline solution. The fascia was closed with #1 PDS suture. Skin was closed with 2-0 Vicryl, lizzy, and a Silverlon dressing. She was then transferred to a hospital bed and taken to the post anesthesia care unit in stable condition. She tolerated the procedure well. Acosta Rosario PA-C, was present for the entire procedure. He was critical for patient positioning, prepping, draping, retraction exposure, wound closure and application of sterile dressing. I attest to the content of the Intraoperative Record and any orders documented therein. Any exceptions are noted below.
--- NOTE | 2023-04-27 08:34 | Fluoroscopy Report ---
FL hip LT 1V CLINICAL HISTORY: Left anterior total hip arthroplasty COMPARISON STUDY: None. FLUOROSCOPY TIME: 14 seconds. FLUOROSCOPY IMAGES: 1 Ka,r: 1.6 mGy FINDINGS: There is a left total arthroplasty. The hardware is intact. No fracture or dislocation. IMPRESSION: Fluoroscopic assistance as above. ACT 112: Negative or not required by law. Electronically signed by: Saurav Nash M.D. 04/27/2023 8:33 AM
--- NOTE | 2023-04-27 08:55 | XRay Report ---
AP PELVIS, CROSSTABLE LATERAL LEFT HIP History: Left total hip arthroplasty. Degenerative arthritis. Postop. FINDINGS: The patient is status post a left total hip arthroplasty. The hardware is intact. No fractu re or dislocation. Skin lizzy are in place. Evidence for prior right total hip arthroplasty. IMPRESSION: Left total hip arthroplasty. No evidence for hardware complication. ACT 112: Negative or not required by law. Electronically signed by: Saurav Nash M.D. 04/27/2023 8:54 AM
[2023-04-27] MEDS ORDERED: PHENYLEPHRINE HCL 10 MG/ML VIAL ONE (09:18)
[2023-04-27] MEDS ORDERED: DEXAMETHASONE SOD INJ 4 MG/ML VIAL ONE (09:20)
[2023-04-27] MEDS ORDERED: ONDANSETRON INJ 2 MG/ML 2 ML VIAL ONE (09:20)
[2023-04-27] MEDS ORDERED: bisacodyL 10 MG SUPP PR PRN (09:35)
[2023-04-27] MEDS ORDERED: METOCLOPRAMIDE HCL INJ 5 MG/ML 2 ML VIAL IV PRN (09:35)
[2023-04-27] MEDS ORDERED: ONDANSETRON INJ 2 MG/ML 2 ML VIAL IV PRN (09:35)
[2023-04-27] MEDS ORDERED: MAGNESIUM HYDROXIDE SUSP 30 ML UDC PO PRN (09:35)
[2023-04-27] MEDS ORDERED: NALOXONE HCL 0.4 MG/1 ML VIAL/CARP IV PRN (09:35)
[2023-04-27] MEDS ORDERED: oxyCODONE HCL IR 5 MG TAB (IMMEDIATE RELEASE) PO PRN (09:35)
[2023-04-27] MEDS ORDERED: HYDROmorphone INJ 0.5 MG/0.5 ML SYR IV PRN (09:35)
[2023-04-27] MEDS: SODIUM CHLORIDE 0.9% 1,000 ML IV SCH (09:57)
[2023-04-27] MEDS: ESCITALOPRAM OXALATE 10 MG TAB PO SCH (10:00)
[2023-04-27] MEDS: LEVOTHYROXINE SODIUM 25 MCG TABLET PO SCH (10:01)
[2023-04-27] MEDS: MULTIVITAMIN TAB PO SCH (10:06)
[2023-04-27] MEDS: DOCUSATE SODIUM 100 MG CAP PO SCH (10:06)
[2023-04-27] MEDS: LOSARTAN/HCTZ 50/12.5MG TAB PO SCH (10:06)
[2023-04-27] MEDS: KETOROLAC 30 MG/ML VIAL IV SCH (10:06)
--- NOTE | 2023-04-27 10:23 | Anesthesiology Progress Note ---
Date of Service April 27, 2023 Anesthesia Post Procedure Vital Signs Vital Signs: Temp Pulse Pulse Resp BP Pulse Ox O2 Del Method 04/27/23 10:11 36.5 C 70 14 140/63 95 Room Air 04/27/23 09:39 36.3 C L 71 16 129/71 94 Room Air 04/27/23 09:10 36.5 C 70 14 147/83 H 93 Room Air 04/27/23 09:01 36.8 C 70 14 135/65 95 Room Air 04/27/23 08:50 36.8 C 71 19 140/64 98 Oxymask 04/27/23 08:40 70 15 137/65 100 Oxymask 04/27/23 08:30 70 17 136/70 100 Oxymask 04/27/23 08:20 36.7 C 77 16 149/80 H 95 Oxymask 04/27/23 05:25 36.6 C 82 18 168/90 H 94 Room Air O2 Flow Rate 04/27/23 10:11 04/27/23 09:39 04/27/23 09:10 04/27/23 09:01 04/27/23 08:50 1 04/27/23 08:40 3 04/27/23 08:30 5 04/27/23 08:20 5 04/27/23 05:25 Notes Mental Status: alert / awake / arousable Patient Amnestic to Procedure: Yes Nausea / Vomiting: adequately controlled Pain: adequately controlled Airway Patency, RR, SpO2: stable & adequate BP & HR: stable & adequate Hydration State: stable & adequate Neuraxial Anesthesia: was administered and sensory block is resolving Anesthetic Complications: no major complications apparent
[2023-04-27] MEDS: FUROSEMIDE 20 MG TAB PO SCH (14:04)
[2023-04-27] MEDS: METOPROLOL SUCC 50MG EXT REL TAB PO SCH (21:26)
[2023-04-27] MEDS: SENNA 8.6 MG TAB PO SCH (21:27)
[2023-04-27] MEDS: ANASTROZOLE 1 MG TAB PO SCH (21:27)
[2023-04-27] MEDS: LORATADINE 10 MG TAB PO SCH (21:27)
[2023-04-27] MEDS: ZOLPIDEM TARTRATE 5 MG TAB PO ONE (22:08)
--- NOTE | 2023-04-28 06:33 | Orthopedic Progress Note ---
Date of Service April 28, 2023 Assessment & Plan (1) Status post left hip replacement: Overall she is doing well. She is not having much pain in the left hip. She will be seen by physical therapy today for ambulation and range of motion exercises. She can be discharged home later today. She is on Eliquis for DVT prophylaxis. She will follow-up with orthopedics in 2 weeks. Mayra Sherwood was seen and examined at bedside this morning. Overall she is doing very well. She is not having much pain in the left hip. She has been up and ambulating to the bathroom. She has no complaints.. Review of Systems All systems reviewed & are unremarkable except as noted in HPI & below. Physical Exam On physical examination of the left hip, the dressing is clean and dry. Her leg is out full extension. She has active dorsiflexion plantarflexion of her left ankle.. Results & Data Results & Data Laboratory Results . Diagnostic Findings Postoperative x-rays of the left hip show the prosthesis to be in anatomic alignment without any evidence of fracture, dislocation, or loosening.. PG Care Time/CCT Total # of Minutes Spent Total Time Spent with Patient: Total time spent is greater than 50% in coordination of care (as documented) at patient's floor/unit and/or counseling patient: Coding Level of Care Code 57050 Post Operative Follow-Up Diagnoses Status post left hip replacement Z96.642
--- NOTE | 2023-04-28 06:34 | Discharge Summary ---
Date of Service April 28, 2023 Principal Diagnosis Same as "Discharge Diagnosis" noted below under Discharge Instructions. Discharge Exam On physical examination of the left hip, the dressing is clean and dry. Her leg is out full extension. She has active dorsiflexion plantarflexion of her left ankle.. Discharge Data Procedures Performed Operation Date: 04/27/23 07:00 Actual Procedures p Left Anterior Total Hip Arthroplasty(Left) - Acosta Bolton DO Ordered Studies 04/27/23 07:00 FL hip LT 1V Routine Hospital Course (1) Status post left hip replacement: On April 27, 2023 Kaela arrived at [facility] and underwent a left hip replacement without complication. She had a spinal anesthetic. Postoperatively she was started on Eliquis for DVT prophylaxis and transferred to the general orthopedic floors. Her hospital course was uneventful. On postop day #1, her vital signs were stable and her pain was well-controlled. She was able to participate well with physical therapy doing ambulation and range of motion exercises. She was then discharged home. She will follow-up with orthopedics in 2 weeks. PG Care Time/CCT Total # of Minutes Spent Total Time Spent with Patient: Total time spent is greater than 50% in coordination of care (as documented) at patient's floor/unit and/or counseling patient: Discharge Plan Discharge Items Patient Disposition: Home - Self-Care Reason For Visit: DJD Left Hip Discharge Diagnosis: Left hip replacement Activity: Per Instructions section Non-emergency contact: Surgeon Call non-emergency contact if: your wound has increased redness and your wound has increased drainage Follow-up/Referrals: Debra Grubbs CRNP [Primary Care Provider] - Diet: Regular Addtl Attending Provider Instructions: Activity and Therapy Recommendations: * If you are using [facility] then therapy will be provided at your home until they feel you have accomplished all of your goals. * If you are using [facility] then Physical Therapy will be provided until they feel you are ready to start Outpatient Physical Therapy. * If you are not using home therapy then Outpatient Physical Therapy should start about 3-5 days from your day of surgery. Therapy will last about 6-10 weeks * You were shown a series of exercises in the hospital. Do these exercises three times each day including the exercises you were shown in physical therapy. * Get up and walk several times each day.~ For the first four weeks, try not to stand or walk for more than one hour at a time. If you do stand or walk for more than one hour, you will not hurt anything, but your leg will likely swell.~~ * As you feel comfortable, you may change from the walker or crutches to a cane and~then to independent walking. Medications: * Narcotic You will likely be sent home from the hospital with a prescription for the narcotic pain medication that worked best throughout your stay. * Cefadroxil take the antibiotic twice a day for 10 days to help prevent infection. - * Eliquis- continue taking your Eliquis as prescribed. * Other medications may be prescribed for specific circumstances. If you have any questions, please call the office at . * Resume previous home medications unless otherwise instructed TEDs/Elastic Stockings: The white elastic stockings help limit swelling and prevent blood clots from forming in your legs. The more you wear them, the more they work. Wear them for six weeks. Dressing Care: Leave the Silverlon dressing in place for 7 days. After 7 days you may remove the dressing. If the incision is not draining then you may leave the lizzy open to air. If there is a little bit of drainage or if the lizzy are getting stuck on your clothing then cover the incision with a dry dressing. The lizzy will be removed at your 2 week follow-up appointment. Showering: You may shower with the Silverlon dressing in place. Do not let the shower spray hit the dressing directly. Pat the Silverlon dressing dry. If the dressing becomes wet underneath, then simply remove the dressing. Keep the incision dry until you are 7 days out from the day of surgery. After 7 days you may remove the Silverlon dressing and shower with the lizzy exposed. Let soapy water run over the lizzy and pat them dry. Do not scrub or soak the incision. Things To Watch For: * Drainage from the incision site that occurs more than one week after your surgery. * Increased redness at the incision site. * Fever above 102 degrees Fahrenheit. * Unusual chest pain or shortness of breath. * Call [facility] at with any of the above problems Follow-Up Visit: Follow-up with Dr. Bolton's PA (Acosta Rosario) 2-3 weeks after your day of surgery. He will remove your lizzy and answer any questions. If you have any additional questions or concerns, Dr Bolton is usually in the office at the same time and will be available An appointment was probably scheduled when you signed-up for surgery in the office. If you have any questions call Office Instructions: More detailed instructions as well as Frequently Asked Questions were provided in a folder by our office when you signed-up for surgery. Please review these instructions when you get home. If you have any further questions or concerns, please feel free to call the office at [phone] Pending Studies at Discharge: No Stand-Alone Forms: [facility] Medications and DC Order Prescriptions: New oxycodone 5 mg Tablet 5 mg PO Q4H PRN (Reason: pain) Qty: 30 0RF cefadroxil 500 mg capsule 500 mg PO BID 10 Days Qty: 20 0RF Continued (DME) [facility] [place] See Rx Instructions .MEDSUPPLY Qty: 1 0RF Rx Instructions: As directed multivitamin Tablet 1 tab PO QAM anastrozole 1 mg Tablet 1 mg PO QPM ascorbic acid (vitamin C) [Vitamin C] 500 mg Tablet 500 mg PO PM loratadine 10 mg Tablet 10 mg PO QPM escitalopram oxalate [Lexapro] 10 mg Tablet 10 mg PO QAM [id number]-fish oil 350-400 mg Capsule 1 cap PO QPM Probiotic 10 billion cell Capsule 10,000 mmu cells PO DAILY Virgen Tarte 1 dose PO QPM levothyroxine 25 mcg Tablet 25 mcg PO QAM metoprolol succinate 50 mg Tablet Extended Release 24 Hr 50 mg PO HS calcium 500 mg Tablet 500 mg PO DAILY losartan-hydrochlorothiazide 100-25 mg Tablet 1 tab PO QAM zinc 25 mg Tablet 25 mg PO DAILY furosemide [Lasix] 20 mg Tablet 20 mg PO Q2D Patient Comments: am Eliquis 5 mg Tablet 5 mg PO BID Coq10 With Vitamin D3 1 tab PO QAM Discharge Orders: Discharge Order (Routine); Ordered 04/28/23 Ordered By: Acosta Bolton Admission Data Admit Date/Time: 04/27/23 08:20 Attending Provider: Acosta Bolton Admit Provider: Acosta Bolton Primary Care Provider: Debra Grubbs
[2023-04-28] MEDS: dexAMETHasone 4 MG TAB PO SCH (07:58)
[2023-04-28] MEDS: APIXABAN 5 MG TABLET PO SCH (07:58)
== END 2023-04-28 12:15 | disposition home or self-care (01) ==
LOC: 3E 05:00 → ASU 05:00